=== PATIENT | female | born 1945 | race Caucasian/White ===

== ENCOUNTER → 2017-08-28 11:03 | Outpatient (CLI) | payer MEDICARE, OTHER, SELFPAY ==
--- NOTE | 2017-08-28 | DI.MG.S_ITS ---
BILATERAL DIGITAL SCREENING MAMMOGRAM 3D/2D WITH CAD: 08/28/2017 CLINICAL: Routine screening. Family history of breast cancer. Comparison is made to exams dated: 08/05/2016 mammogram, 07/23/2015 mammogram, and 07/21/2014 mammogram - Merged With [facility]. The tissue of both breasts is heterogeneously dense. This may lower the sensitivity of mammography. Current study was also evaluated with a Computer Aided Detection (CAD) system. No significant masses, calcifications, or other findings are seen in either breast. There has been no significant interval change. IMPRESSION: NEGATIVE There is no mammographic evidence of malignancy. A 1 year screening mammogram is recommended. NOTE: For mammograms, a report in lay terms will be sent to the patient. Approximately 15% of breast malignancies will not be visualized mammographically. In the management of a palpable breast mass, a negative mammogram must not discourage biopsy of a clinically suspicious lesion. Electronically Signed By: Lavinia torres/debora:08/28/2017 16:16:02 letter sent: Normal Exam ACR BI-RADS Category 1: Negative [id number]
== END ==
PROVIDERS: Family Provider Family Medicine; PCP Family Medicine; Visit Provider Family Medicine
DX: Z12.31 Encounter for screening mammogram for malignant neoplasm of breast (principal); Z80.3 Family history of malignant neoplasm of breast
CPT/HCPCS: 77063; 77067

== ENCOUNTER 2018-05-31 13:42 | Inpatient (IN) | payer MEDICARE, OTHER, SELFPAY ==
[2018-05-31] VITALS (9 sets, daily range): BP systolic 115–165; BP diastolic 63–109; PULSE 64–78; RESP 15–23; TEMP 36.5–36.7; O2SAT 97–100; BMI 25.4
--- NOTE | 2018-05-31 14:03 | DI.RAD.S_ITS ---
PROCEDURE: XR CHEST 1V INDICATIONS: chest pain TECHNIQUE: One view of the chest was acquired. COMPARISON: None. FINDINGS: Surgical changes and devices: None. Lungs and pleura: Lungs are clear. No pleural effusions or pneumothorax. Mediastinum: Mediastinal contours appear normal. Heart size is normal. Bones and chest wall: No suspicious bony lesions. Overlying soft tissues appear unremarkable. IMPRESSION: No acute process. Dictated by: Eri Recio M.D. on 05/31/2018 at 14:25 Approved by: Eri Recio M.D. on 05/31/2018 at 14:25
--- NOTE | 2018-05-31 14:43 | ED.NEUROSD ---
HPI - Neuro Symptoms/Deficit General Chief Complaint: Neuro Symptoms/Deficit Stated Complaint: rt arm numbness, stumbling, light headed Time Seen by Provider: 05/31/18 14:43 Source: patient and family () Mode of arrival: ambulatory Limitations: no limitations History of Present Illness HPI Narrative: This is a 72-year-old female comes to the emergency department with complaint of of her arm and hand as well as some weakness and stumbling around her house that started about 4:30 a.m. yesterday. Patient states she woke up to go to the restroom. She was sort of bouncing off the garcia on the way to the bathroom. She went back to bed and woke up at 7:00 a.m.. She noticed that her she has sort of a arm with tingling and numbness. States this happens frequently and sometimes her middle finger got stuck. Usually goes away but this did not. She had trouble with using her arm trying to do her hair and rollers which is not normal for her and she had an off sort of feeling. She did not have any speech changes, no vision changes, no weakness or numbness in her lower extremity, she denies any chest pain, shortness of breath, no headache. Some slight nausea but no vomiting and no issues with bowel movements or urination. States her blood pressure typically is been quite high she was started on new blood pressure medication about a week and a half ago at metoprolol 50 mg once daily. Her pressures have been running in the 200 systolic to 150s regularly with a heart rate that was often elevated. This has been improving and she has been 160s 150s here in the department. She does not take a blood thinner she takes lovastatin, cyclobenzaprine, omeprazole lorazepam. She does have a history of hysterectomy. Dr. Cantu is her primary care Related Data Home Medications Medication Instructions Recorded Confirmed cyclobenzaprine 10 mg PO BEDTIME 05/31/18 05/31/18 lorazepam 1 mg PO BEDTIME 05/31/18 05/31/18 lovastatin 20 mg PO QPM 05/31/18 05/31/18 metoprolol succinate 50 mg PO DAILY 05/31/18 05/31/18 metronidazole 1 applic TOPICAL BID 05/31/18 05/31/18 omeprazole 20 mg PO DAILY 05/31/18 05/31/18 Allergies Allergy/AdvReac Type Severity Reaction Status Date / Time No Known Drug Allergies Allergy Verified 05/31/18 13:56 Review of Systems Review of Systems ROS Unobtainable: All systems reviewed & are unremarkable except as noted in HPI and below Constitutional Denies chills, Denies fever(s), Denies headache(s), Denies lethargy and Denies weakness Eyes Denies blurry vision and Denies change in vision ENT Ears, Nose, Mouth, and Throat: Denies headache(s), Denies nasal congestion and Denies other (Facial droop) Cardiovascular Denies chest pain, Denies diaphoresis, Denies syncope, Denies palpitations, Denies dyspnea and Denies dyspnea on exertion Respiratory Denies chest congestion, Denies cough, Denies dyspnea and Denies dyspnea on exertion Gastrointestinal Gastrointestinal: Denies abdominal pain, Denies change in bowel habits, Denies diarrhea, Reports nausea and Denies vomiting Genitourinary Denies hematuria, Denies dysuria, Denies flank pain and Denies urinary urgency Musculoskeletal Reports as per HPI, Reports muscle weakness, Reports numbness and Reports tingling Integumentary/Breasts Denies rash Neurologic Denies syncope, Denies headache(s), Reports focal weakness (Improved right arm), Reports numbness, Reports sensory deficit, Reports tingling and Denies weakness Endocrine Denies palpitations [facility] Medical History (Updated 05/31/18 @ 19:41 by Josy Owusu DO) Dyslipidemia (Chronic) GERD (gastroesophageal reflux disease) (Chronic) H/O: hysterectomy (Chronic) Hypertension (Chronic) Social History (Updated 05/31/18 @ 19:41 by Josy Owusu DO) household members: spouse Smoking Status: Never smoker alcohol intake: current substance use type: does not use Social History (Updated 05/31/18 @ 19:41 by Josy Owusu DO) household members: spouse Smoking Status: Never smoker alcohol intake: current substance use type: does not use Exam Narrative Exam Narrative: GEN: well nourished, well appearing elderly female, alert and oriented x 3, patient appears to be in mild distress. HEENT: Atraumatic, pupils are equal round reactive to light, extraocular movements are intact, nares are clear, TMs are clear with no fluid, there is no conjunctival pallor. Throat is clear without any exudates, erythema, tonsillar enlargement or uvular deviation, no facial droop. Clear speech. HEART: Regular rate and rhythm without murmur, clicks, rubs. pulses are equal in upper and lower extremities LUNGS:Lungs clear to auscultation, no wheezes, rales, crackles, chest moves symmetrically ABD:bowel sounds normal, soft, non-tender, no guarding, rebound, rigidity, no masses noted, no hepatosplenomegaly MSCL: Non-tender, no muscle atrophy, muscles strength 5/5 upper and lower extremities, full range of motion, gait not tested. NEURO:CN 2-12 intact, sensation normal, finger nose finger test normal, heel elliott test normal Initial Vital Signs Initial Vital Signs: Vital Signs Temperature 98.1 F 05/31/18 13:52 Pulse Rate 73 05/31/18 13:52 Respiratory Rate 16 05/31/18 13:52 Blood Pressure 165/101 H 05/31/18 13:52 Pulse Oximetry 99 05/31/18 13:52 Scores NIH Stroke Scale Level of Conciousness: Alert, keenly responsive Ask month/age: Answers both questions correctly. Open/close eyes, close hand: Performs both tasks correctly Best gaze horizontal: Normal Visual robertson: No visual loss Facial palsy: Normal symetrical movement Left arm drift: No drift for full 10 sec Right arm drift: No drift for full 10 sec Left leg drift: No drift for full 10 sec Right leg drift: No drift for full 10 sec Limb ataxia: Absent Sensory on face/arms/legs: Mild to moderate sensory loss, can tell touch Best language: No aphasia, normal Dysarthria: Normal Extinction or inattention: No abnormality Total NIH Stroke scale score: 1 Course Orders Ordered: ED Orders 05/31/18 14:03 XR chest 1V Stat Complete Blood Count AUTO DIFF Stat Comprehensive Metabolic Panel Stat Lipase Stat Partial Thromboplastin Time Stat Prothrombin Time INR Stat Troponin & CK Cardiac Panel Stat 05/31/18 14:11 EKG-12 Lead Stat 05/31/18 15:20 CT head/brain wo con Stat 05/31/18 17:21 Consult to Discharge Planning Routine Consult to Occupational Therapy Evaluate & Treat Consult to Physical Therapy Evaluate & Treat Consult to Speech Therapy Evaluate & Treat Education, smoking cessation ONGOING Education, smoking cessation ONGOING 06/01/18 EC echo doppler complete Urgent MR stroke Urgent Basic Metabolic Panel Urgent Complete Blood Count AUTO DIFF Urgent 06/01/18 17:21 MR stroke Stat 06/01/18 17:24 Consult to Physical Therapy Evaluate & Treat Acetaminophen (Tylenol) 650 mg PO Q6HR PRN PRN Reason: As Needed for Fever/Mild Pain Aspirin (Aspirin) 325 mg PO DAILY [facility] Cyclobenzaprine HCl (Flexeril) 10 mg PO BEDTIME [facility] Enoxaparin Sodium (Lovenox) 40 mg SUBCUT DAILY [facility] Last Admin: 05/31/18 18:56 Dose: 40 mg Lorazepam (Ativan) 1 mg PO BEDTIME EDWIGE Lovastatin (Mevacor) 20 mg PO QPM [facility] Metoprolol Succinate (Toprol Xl) 50 mg PO DAILY [facility] Non-Formulary Medication (Sustain) 1 drop BUCCAL Q1HR [facility] Ondansetron HCl (Zofran) 4 mg IV Q8HR PRN PRN Reason: Nausea And Vomiting Pantoprazole Sodium (Protonix) 20 mg PO DAILY EDWIGE Discontinued Medications Aspirin (Aspirin Chew) 324 mg PO NOW ONE Stop: 05/31/18 16:02 Last Admin: 05/31/18 17:05 Dose: 324 mg Vital Signs - 8 hr 05/31/18 13:52 05/31/18 14:30 05/31/18 15:30 Temperature 98.1 F Pulse Rate 73 67 64 Respiratory Rate 16 15 17 Blood Pressure 165/101 H Blood Pressure [Left Arm] 161/81 H 165/71 H Pulse Oximetry 99 98 99 05/31/18 16:30 05/31/18 17:03 05/31/18 17:52 Temperature Pulse Rate 64 76 69 Respiratory Rate 17 18 23 Blood Pressure 164/85 H Blood Pressure [Left Arm] 161/82 H 127/109 H Pulse Oximetry 98 100 99 05/31/18 18:05 05/31/18 18:29 Temperature 97.8 F Pulse Rate 68 Respiratory Rate 18 Blood Pressure 149/95 H Blood Pressure [Left Arm] Pulse Oximetry 97 97 MDM - Neuro Symptoms/Deficit Lab Data Attestation: I reviewed the patient's lab results. Result diagrams: 05/31/18 14:03 05/31/18 14:03 Lab Results 05/31/18 05/31/18 05/31/18 Range/Units 14:03 14:03 14:03 WBC 5.7 (4.5-11.0) X10^3/uL RBC 4.53 (4.0-5.2) X10^6/uL Hgb 12.8 (12.0-16.0) g/dL Hct 38.9 (36-46) % MCV 86.0 (80-100) fL MCH 28.2 (26-34) PG MCHC 32.8 (30-36) % RDW 15.0 H (11.6-14.8) % Plt Count 183 (150-400) X10^3/uL Neut % (Auto) 51.8 (50-75) % Lymph % (Auto) 35.1 (25-40) % [place] % (Auto) 10.5 (3-14) % Eos % (Auto) 1.9 L (2-4) % Baso % (Auto) 0.7 (0-2) % Neut # (Auto) 2900 (2813-1159) /uL Lymph # (Auto) 2000 (0100-8314) /uL [place] # (Auto) 600 (0-900) /uL Eos # (Auto) 100 (0-450) /uL Baso # (Auto) 0 (0-100) /uL PT 10.7 (10.1-12.7) SECONDS INR 0.9 (0.9-1.3) APTT 23 L (26.4-36.2) SECONDS Sodium 136 L (137-145) mmol/L Potassium 5.1 (3.4-5.1) mmol/L Chloride 96 L (98-107) mmol/L Carbon Dioxide 31 (22-32) mmol/L BUN 18 H (7-17) mg/dL Creatinine 0.80 (0.52-1.04) mg/dL Estimated GFR > 60.0 (>60) mL/min BUN/Creatinine Ratio 22.5 H (6-22) Glucose 88 (80-110) mg/dL Calcium 10.0 (8.4-10.2) mg/dL Total Bilirubin 0.4 (0.2-1.3) mg/dL AST 26 (14-36) IU/L ALT 32 (9-52) IU/L Alkaline Phosphatase 51 (38-126) U/L Total Creatine Kinase 48 (30-135) U/L CK-MB (CK-2) TNP CK-MB (CK-2) Rel Index TNP Troponin I < 0.012 (0.01-0.034) ng/mL Total Protein 7.4 (6.3-8.2) g/dL Albumin 4.6 (3.5-5.0) g/dL Globulin 2.8 (1.7-4.1) g/dL Albumin/Globulin Ratio 1.6 (1.0-2.8) Lipase 136 (23-300) U/L Urine Dip Bedside Urine Glucose Negative Bedside Urine Bilirubin - Negative Bedside Urine Ketone - Negative Urine Specific [place] 1.015 Bedside Urine Occult Blood - Negative Bedside Urine pH 7.0 Bedside Urine Protein - Negative Bedside Urine Urobilinogen - Negative Bedside Urine Nitrite - Negative Bedside Urine Leukocytes - Negative Esterase Imaging Data Chest x-ray: Radiologist's impression: Chart Viewer Diagnostics DATE TYPE STATUS AUTHOR Hx 05/31/18 14:03 Eri Recio 08/28/17 00:00 Jayne Aguilarah 12/22/16 14:36 DEXA SCAN Maggie Naranjo, F0 1945 REG ER, ED.LOC - Main ED: R06 152.4cm 58.967kg BMI: 25.4kg/m? Neuro Symptoms/Deficit Search Chart No Data to Display Today 14:30 Maggie Naranjo F 1945 [place] [address] XRay Report Signed Patient: Maggie Naranjo [facility]#: [id number] : 8Acct:[id number] Age/Sex: 72 / FDate of Service: 05/31/18 Loc: ED Accession Number: [id number] Procedure: XR chest 1V Ordering Provider: Josy Owusu D.O. PROCEDURE: XR CHEST 1V INDICATIONS: chest pain TECHNIQUE: One view of the chest was acquired. COMPARISON: None. FINDINGS: Surgical changes and devices: None. Lungs and pleura: Lungs are clear. No pleural effusions or pneumothorax. Mediastinum: Mediastinal contours appear normal. Heart size is normal. Bones and chest wall: No suspicious bony lesions. Overlying soft tissues appear unremarkable. IMPRESSION: No acute process. Dictated by: Eri Recio M.D. on 05/31/2018 at 14:25 Approved by: Eri Recio M.D. on 05/31/2018 at 14:25 CT scan - head: Radiologist's impression: [address] [id number] [address] Scan Report Signed Patient: Maggie Naranjo [facility]#: [id number] : 8Acct:[id number] Age/Sex: 72 / FDate of Service: 05/31/18 Loc: ED Accession Number: [id number] Procedure: CT head/brain wo con Ordering Provider: Josy Owusu D.O. PROCEDURE: CT HEAD/BRAIN WO CON INDICATIONS: disequalibrium, tingling, weakness right arm TECHNIQUE: Noncontrast 4.5 mm thick angled axial sections acquired from the foramen magnum to the vertex, with coronal and sagittal reformats. For radiation dose reduction, the following was used: automated exposure control, adjustment of mA and/or kV according to patient size. COMPARISON: None. FINDINGS: Image quality: Excellent. CSF spaces: Basal cisterns are patent. No extra-axial fluid collections. The ventricles are symmetric in size and shape. Brain: No intracranial bleeds or masses. There is cerebral volume loss for age, with resultant ventricular and sulcal prominence. There are periventricular and deep white matter chronic small vessel ischemic changes. There is intracranial internal carotid artery atherosclerosis. Skull and face: Calvarium and visualized facial bones appear intact, without suspicious lesions. Sinuses: Visualized sinuses and mastoids are clear. IMPRESSION: No acute intracranial or mildly. Dictated by: Eri Recio M.D. on 05/31/2018 at 15:38 Approved by: Eri Recio M.D. on 05/31/2018 at 15:39 ECG Data Attestation: I personally reviewed and interpreted this ECG as follows: Interpretation: Sinus rhythm ventricular rate of 67 P are 176 QRS of 93 and QTC of 388. No ST elevation or depression appreciated. MDM Narrative Medical decision making narrative: Discussed with patient she does have a history of carpal tunnel in that hand but sounds like she is having true weakness and the numbness tingling is not resolved as well as her disequilibrium and sort of bouncing off of furniture in the garcia makes me more suspicious of a CVA. She is almost 24 out hours out from initial onset. She would not be a candidate for tPA or intervention at this time. Patient's head CT is negative, chest x-ray is clear, no acute EKG changes lab work shows no major abnormalities. Spoke with Dr. Monreal who accepts. Patient does receive aspirin 324 mg in the department. Discharge Plan Departure Patient Disposition: Admitted as Observation Clinical Impression: Cerebrovascular accident Discharge Date/Time: 05/31/18 18:10 Interventions: ED Discharge Assessment Last Done: 05/31/18 17:52 Admit Date/Time: 05/31/18 16:58 Admit Provider: Fritz Monreal
[2018-05-31 15:02] LABS: Add Manual Diff / Slide Review NO; Basophils Absolute Auto 0 /uL (0-100); Basophils Percent Auto 0.7 % (0-2); Eosinophils Absolute Auto 100 /uL (0-450); Eosinophils Percent Auto 1.9 % (2-4); Hematocrit 38.9 % (36-46); Hemoglobin 12.8 g/dL (12.0-16.0); Lymphocytes Absolute Auto 2000 /uL (1100-4500); Lymphocytes Percent Auto 35.1 % (25-40); Mean Corpuscular HGB Conc 32.8 % (30-36); Mean Corpuscular Hemoglobin 28.2 PG (26-34); Monocytes Absolute Auto 600 /uL (0-900); Monocytes Percent Auto 10.5 % (3-14); Neutrophils Absolute Auto 2900 /uL (1500-7000); Neutrophils Percent Auto 51.8 % (50-75); Platelet Count 183 X10^3/uL (150-400); Red Blood Cell Count 4.53 X10^6/uL (4.0-5.2); White Blood Cell Count 5.7 X10^3/uL (4.5-11.0)
[2018-05-31 15:07] LABS: INR 0.9 (0.9-1.3); Prothrombin Time 10.7 SECONDS (10.1-12.7)
[2018-05-31 15:10] LABS: PTT Partial Thromboplastin Tim 23 SECONDS (26.4-36.2)
[2018-05-31 15:16] LABS: Alanine Aminotransferase 32 IU/L (9-52); Albumin 4.6 g/dL (3.5-5.0); Albumin Globulin Ratio 1.6 (1.0-2.8); Alkaline Phosphatase 51 U/L (38-126); Aspartate Aminotransferase 26 IU/L (14-36); BUN Creatinine Ratio 22.5 (6-22); Bilirubin Total 0.4 mg/dL (0.2-1.3); Blood Urea Nitrogen 18 mg/dL (7-17); Carbon Dioxide 31 mmol/L (22-32); Chloride 96 mmol/L (98-107); Creatine Kinase 48 U/L (30-135); Estimated Glomerular Filt Rate > 60.0 mL/min (>60); Globulin 2.8 g/dL (1.7-4.1); Glucose 88 mg/dL (80-110); HEMOLYSIS < 15 (0-50); Lipase 136 U/L (23-300); Potassium 5.1 mmol/L (3.4-5.1); Sodium 136 mmol/L (137-145); Total Protein 7.4 g/dL (6.3-8.2)
--- NOTE | 2018-05-31 15:20 | DI.CT.S_ITS ---
PROCEDURE: CT HEAD/BRAIN WO CON INDICATIONS: disequalibrium, tingling, weakness right arm TECHNIQUE: Noncontrast 4.5 mm thick angled axial sections acquired from the foramen magnum to the vertex, with coronal and sagittal reformats. For radiation dose reduction, the following was used: automated exposure control, adjustment of mA and/or kV according to patient size. COMPARISON: None. FINDINGS: Image quality: Excellent. CSF spaces: Basal cisterns are patent. No extra-axial fluid collections. The ventricles are symmetric in size and shape. Brain: No intracranial bleeds or masses. There is cerebral volume loss for age, with resultant ventricular and sulcal prominence. There are periventricular and deep white matter chronic small vessel ischemic changes. There is intracranial internal carotid artery atherosclerosis. Skull and face: Calvarium and visualized facial bones appear intact, without suspicious lesions. Sinuses: Visualized sinuses and mastoids are clear. IMPRESSION: No acute intracranial or mildly. Dictated by: Eri Recio M.D. on 05/31/2018 at 15:38 Approved by: Eri Recio M.D. on 05/31/2018 at 15:39
[2018-05-31 15:26] LABS: Troponin I < 0.012 ng/mL (0.01-0.034)
[2018-05-31] MEDS: ASPIRIN 81 MG TAB 324 MG PO (17:05)
--- NOTE | 2018-05-31 17:41 | P.HP_ITS ---
History of Present Illness Date Patient Seen: 05/31/18 Time Patient Seen: 17:30 Chief complaint: rt arm numbness, stumbling, light headed Narrative: The patient is a 72-year-old white female patient of Dr. Cantu so I am cross covering for who presents with right hand numbness and weakness and balance difficulty. Patient has had no previous history of neurologic issues. Apparently yesterday for in the morning she got up to go to the bathroom and just felt off such could really describe it. She noted that she ran into several things she usually does not run into going to the bathroom. She finally made it back to the bedroom and bed and went to sleep woke up feeling somewhat tingly in her right hand but really no other changes. Her balance seemed to improve. Otherwise the numbness and tingling seemed to be present pretty consistently throughout the day and then she started to feel little more weak. Was unable to help her move furniture. She went to bed last night somewhat early and noted when she woke up that she was numb but her balance seems a little better. Still felt off. Hand seems to be a little better. Due to the fact that it was persistent she came to the emergency room. She denies any headaches. Nausea or vomiting. Visual changes. Has not walked since she has been to the hospital. No other changes. No change in her bowel movements. No urinary changes. Feeling pretty well otherwise. Patient has a history of poorly treated hypertension was recently placed on metoprolol. She has a history of SVT but is not on treatment for that. Does have history of hyperlipidemia. No other changes. Past medical history: Dry eyes Hypertension Hyperlipidemia Esophageal reflex Chronic back pain Benzodiazepine addiction Anxiety Insomnia Osteoporosis Past surgical history: Appendectomy Hysterectomy Family history father with liver cancer, alcohol addiction, stroke at 50 years of age, diabetes, hyperlipidemia Mother breast cancer hyperlipidemia hypertension Sister with diabetes Alzheimer's disease and history of strokes 1 year older, younger brother with coronary artery disease 5 years her younger, 10-year younger sister healthy Social history , retired good support. Patient History Social History Smoking Status: Never smoker Family & Social History Safety & Behavioral: Feels Safe in Current Yes Environment Been Physically Hurt or No Threatened By a Person Tobacco & Substance use: Smoking Status Never smoker alcohol intake frequency holiday/special occasion Substance Use Type does not use Meds Home Medications Medication Instructions Recorded Confirmed Type cyclobenzaprine 10 mg PO BEDTIME 05/31/18 05/31/18 History lorazepam 1 mg PO BEDTIME 05/31/18 05/31/18 History lovastatin 20 mg PO QPM 05/31/18 05/31/18 History metoprolol succinate 50 mg PO DAILY 05/31/18 05/31/18 History metronidazole 1 applic TOPICAL BID 05/31/18 05/31/18 History omeprazole 20 mg PO DAILY 05/31/18 05/31/18 History Allergies Allergy/AdvReac Type Severity Reaction Status Date / Time No Known Drug Allergies Allergy Verified 05/31/18 13:56 Review of Systems Review of Systems All systems reviewed & are unremarkable except as noted in HPI and below Exam Vital Signs (past 8 hours): - 05/31/18 13:52 05/31/18 14:30 05/31/18 15:30 Temperature 98.1 F Pulse Rate 73 67 64 Respiratory Rate 16 15 17 Blood Pressure 165/101 H Blood Pressure [Left Arm] 161/81 H 165/71 H Pulse Oximetry 99 98 99 05/31/18 16:30 05/31/18 17:03 Temperature Pulse Rate 64 76 Respiratory Rate 17 18 Blood Pressure Blood Pressure [Left Arm] 161/82 H 127/109 H Pulse Oximetry 98 100 Oxygen Delivery Method Room Air Narrative Exam Narrative: Alert elderly female smiling interactive in no acute distress. HEENT exam shows pupils request much light. Normal movement. No nystagmus. Mucous membranes moist. No oral lesions. no tenderness to exam of head. Neck supple without adenopathy JVD or bruits. No thyromegaly. No masses. Lungs are clear to auscultation percussion heart regular rate and rhythm without murmurs clicks rubs or gallops. Abdomen is soft positive bowel sounds nontender. Extremities without cyanosis clubbing edema. Normal pulses distal. Neurologic exam shows cranial nerves 2-12 were intact motor is 5/5 she is alert and oriented. Motor and sensation appear to be intact. Reflexes are 2+ and s ymmetric. Did not walk but [id number] and [id number] are normal. Psychologically happy interactive appropriate Objective Labs Result Diagrams: 05/31/18 14:03 05/31/18 14:03 Labs: Laboratory Results - last 24 hr 05/31/18 05/31/18 05/31/18 14:03 14:03 14:03 WBC 5.7 RBC 4.53 Hgb 12.8 Hct 38.9 MCV 86.0 MCH 28.2 MCHC 32.8 RDW 15.0 H Plt Count 183 Neut % (Auto) 51.8 Lymph % (Auto) 35.1 [place] % (Auto) 10.5 Eos % (Auto) 1.9 L Baso % (Auto) 0.7 Neut # (Auto) 2900 Lymph # (Auto) 2000 [place] # (Auto) 600 Eos # (Auto) 100 Baso # (Auto) 0 PT 10.7 INR 0.9 APTT 23 L Sodium 136 L Potassium 5.1 Chloride 96 L Carbon Dioxide 31 BUN 18 H Creatinine 0.80 Estimated GFR > 60.0 BUN/Creatinine Ratio 22.5 H Glucose 88 Calcium 10.0 Total Bilirubin 0.4 AST 26 ALT 32 Alkaline Phosphatase 51 Total Creatine Kinase 48 CK-MB (CK-2) TNP CK-MB (CK-2) Rel Index TNP Troponin I < 0.012 Total Protein 7.4 Albumin 4.6 Globulin 2.8 Albumin/Globulin Ratio 1.6 Lipase 136 Assessment & Plan Assessment & Plan narrative: Right arm numbness. Otherwise unremarkable exam. Will admit for concern for stroke MRI echo physical therapy and neuro checks. Will continue aspirin 1 a day expected discharge 48 hours. If stable. Balance difficulty. Possibly secondary to stroke. Certainly unremarkable neuro exam today. Plan will start physical therapy tomorrow and have them evaluate will see how she does. MRI and echo as above. Aspirin to continue. Hypertension. Moderately poorly controlled as an outpatient actually looks pr henrry good right now will continue metoprolol and follow. History of hyperlipidemia will continue lovastatin next specially in the case of stroke. Seems to be stable. Insomnia will continue lorazepam cyclobenzaprine Dry eyes will continue Sustain saline drops GERD will continue omeprazole DVT prophylaxis placed on Lovenox Disposition. Patient certainly would be probably more in the category of TIA than stroke will have to see how things go with CT or MRI shows will see her echo shows should be at least 48 hours needs physical therapy evaluation. Probably home potentially Thursday morning will see how things go questions answered both her and her 's
[2018-05-31] MEDS: ENOXAPARIN 40 MG/0.4 ML SYRINGE SUBCUT (18:56)
[2018-05-31] MEDS: POLYVINYL ALCOHOL DROPS 1 DROPS EYE-BOTH (21:08)
[2018-05-31] MEDS: CYCLOBENZAPRINE 10 MG TABLET PO (21:08)
[2018-05-31] MEDS: LOVASTATIN 20 MG TABLET PO (21:08)
[2018-05-31] MEDS: LORazepam 1 MG TABLET PO (21:08)
--- NOTE | 2018-05-31 22:56 | PC.NURSE ---
pt arrived at 1830. A&OX3, 97%RA, denied pain, sob, or n/v. pt reports R.hand tingling, no facial droop, speech is clear and coherent, no drift. oriented pt to the room. call light in reach.
[2018-06-01] VITALS (9 sets, daily range): BP systolic 113–152; BP diastolic 72–83; PULSE 66–81; RESP 15–16; TEMP 36.1–36.6; O2SAT 95–97
--- NOTE | 2018-06-01 | DI.ECHO.S_ITS ---
[place] [facility]---------+ [facility] +---------+ : : [address] : : : : [id number] : : : : Phone: [phone]+ Echocardiogram Report + + :Name: CRISTINA MANNING Study Date: 06/01/2018 Height: 60 in : :[facility] Weight: 131 lb : : Gender: Female BSA: 1.6 m2 : :: 1945 Age: 72 yrs BP: 113/75 mmHg: :Reason For Study: CVA : : Performed By: Marie Calvillo : :Referring: ZIGGY BHATTI : + + Interpretation Summary The left ventricle is normal in size. The ejection fraction is estimated to be 60-65%. No LV thrombus. The right ventricle is normal size. The right ventricular systolic function is normal. Injection of contrast documented no interatrial shunt. There is mild tricuspid regurgitation. The right ventricular systolic pressure is estimated to be at least 24 mmHg based on an estimated right atrial pressure of 3 mm Hg. No significant atherosclerotic plaques in the aortic arch. The patient was in normal sinus rhythm during the exam. Procedure: A two-dimensional transthoracic echocardiogram with color flow and Doppler was performed. The study quality was technically good. There is no prior echocardiogram noted for this patient. The patient was in normal sinus rhythm during the exam. Left Ventricle: The left ventricle is normal in size. Proximal septal thickening is noted. There is no echo evidence for significant left ventricular outflow tract obstruction. There is no thrombus. The ejection fraction is estimated to be 60-65%. There are no focal wall motion abnormalities. Diastolic parameters suggest a relaxation abnormality of the left ventricle, consistent with probable normal filling pressures. Right Ventricle: The right ventricle is normal size. The right ventricular systolic function is normal. Atria: The left atrial size is normal. Right atrial size is normal. Injection of contrast documented no interatrial shunt. Mitral Valve: There is mild mitral annular calcification. The mitral valve leaflets are slightly calcified. There is no mitral regurgitation noted. Aortic Valve: The aortic valve is trileaflet. The aortic valve opens well. The aortic valve is slightly calcified. There is discrete nodular thickening of the non- coronary cusp. There is no aortic valve stenosis. No aortic regurgitation is present. Tricuspid Valve: The tricuspid valve is normal in structure and function. There is mild tricuspid regurgitation. The right ventricular systolic pressure is estimated to be at least 24 mmHg based on an estimated right atrial pressure of 3 mm Hg. Pulmonic Valve: The pulmonic valve is not well seen, but is grossly normal. There is trace pulmonic regurgitation. Great Vessels: The aortic root is normal size. The dimensions of the ascending aorta are normal. The aortic arch is normal in size. The IVC is of normal diameter and collapses greater than 50% with a sniff. This suggests a low right atrial pressure of 3 mm Hg. Pericardium/ Pleura There is no pericardial effusion. There is no pleural effusion. MMode/2D Measurements & Calculations LVIDd: 4.2 cm Ao root diam: 2.8 cm LVIDs: 2.6 cm Aortic Jxn: 2.2 cm FS: 38.6 % asc Aorta Diam: 3.1 cm IVSd: 0.86 cm Ao Arch Diam (Prox Trans): 2.5 cm LVPWd: 0.90 cm LV winter. diameter/BSA (cm/m^2): 2.7 LV sys. diameter/BSA (cm/m^2): 1.7 LA dimension: 3.6 cm RA long axis: 4.2 cm LA A2 area: 17.4 cm2 RA area: 12.3 cm2 LA A4 area: 12.0 cm2 RA vol: 30.3 ml LA length (vol): 4.2 cm RA : 19.4 ml/m2 LA vol: 42.5 ml IVC diam: 1.4 cm LA vol index: 27.2 ml/m2 RVDd major: 4.7 cm RVD1 (basal): 3.1 cm RVD2 (mid): 2.6 cm Doppler Measurements & Calculations Ao V2 max: 112.7 cm/sec MV E max juan j: 52.0 cm/sec Ao V2 mean: 70.9 cm/sec MV A max juan j: 82.8 cm/sec Ao max P.1 mmHg MV E/A: 0.63 Ao mean P.4 mmHg Med Peak E' Juan J: 5.3 cm/sec Ao V2 VTI: 23.2 cm E/E' med: 9.9 Lat Peak E' Juan J: 5.5 cm/sec E/E' lat: 9.5 E/e' average: 9.7 MV dec time: 0.27 sec MV P1/2t: 81.8 msec TR max juan j: 227.0 cm/sec MV P1/2t max juan j: 52.6 cm/sec TR max P.6 mmHg MVA(P1/2t): 2.7 cm2 PA V2 max: 75.1 cm/sec PA V2 mean: 48.2 cm/sec PA mean P.1 mmHg PA Accel Time: 0.16 sec Reading Physician:JACKY
[2018-06-01 06:06] LABS: BUN Creatinine Ratio 23.8 (6-22); Blood Urea Nitrogen 19 mg/dL (7-17); Calcium 9.4 mg/dL (8.4-10.2); Carbon Dioxide 25 mmol/L (22-32); Chloride 100 mmol/L (98-107); Estimated Glomerular Filt Rate > 60.0 mL/min (>60); Glucose 104 mg/dL (80-110); HEMOLYSIS 24 (0-50); Potassium 3.7 mmol/L (3.4-5.1); Sodium 136 mmol/L (137-145)
[2018-06-01 06:08] LABS: Add Manual Diff / Slide Review NO; Basophils Absolute Auto 0 /uL (0-100); Basophils Percent Auto 0.4 % (0-2); Eosinophils Absolute Auto 100 /uL (0-450); Eosinophils Percent Auto 2.7 % (2-4); Hematocrit 37.1 % (36-46); Hemoglobin 12.6 g/dL (12.0-16.0); Lymphocytes Absolute Auto 2000 /uL (1100-4500); Lymphocytes Percent Auto 44.6 % (25-40); Mean Corpuscular Hemoglobin 28.9 PG (26-34); Mean Corpuscular Volume 84.9 fL (80-100); Monocytes Absolute Auto 400 /uL (0-900); Monocytes Percent Auto 8.4 % (3-14); Neutrophils Absolute Auto 2000 /uL (1500-7000); Neutrophils Percent Auto 43.9 % (50-75); Platelet Count 273 X10^3/uL (150-400); Red Blood Cell Count 4.37 X10^6/uL (4.0-5.2); Red Cell Distribution Width 14.8 % (11.6-14.8); White Blood Cell Count 4.6 X10^3/uL (4.5-11.0)
--- NOTE | 2018-06-01 07:39 | PM.PN.1 ---
Subjective Date Patient Seen: 06/01/18 Time Patient Seen: 07:39 Interval history: Patient seen in follow-up of right arm weakness and balance disturbance. Overall just waking up but feeling okay still having some feeling of weakness in numbness in her right hand. Otherwise no changes. Has not been up today. Got up to go to the bathroom 3 times last night and felt like she did okay. No other significant changes. No chest pain. No headaches. No visual symptoms. Exam Vital Signs (past 8 hours): - 05/31/18 23:40 06/01/18 00:11 06/01/18 03:00 Temperature 97.7 F 97.5 F L Pulse Rate 78 72 Respiratory Rate 16 16 Blood Pressure 115/63 136/72 Pulse Oximetry 97 96 96 Oxygen Delivery Method Room Air Narrative Exam Narrative: Alert female smiling interactive in no acute distress. HEENT exam is unremarkable mucous membranes moist. Neck is supple without adenopathy JVD or bruits. Lungs are clear. Heart regular rate and rhythm without murmurs clicks rubs or gallops. Abdomen is soft positive bowel sounds nontender. extremities without cyanosis clubbing edema. neurologic exam shows cranial nerves 2-12 intact motor 5 in 5 reflexes 2+ and symmetric she does have maybe some slight weakness of the right hand sensation appears to be intact except for a subjective decrease in sensation of light touch. Rest of extremities are normal. Psychologically awake alert smiling interactive appropriate Objective Labs Result Diagrams: 06/01/18 05:11 06/01/18 05:11 Labs: Laboratory Results - last 24 hr 05/31/18 05/31/18 05/31/18 14:03 14:03 14:03 WBC 5.7 RBC 4.53 Hgb 12.8 Hct 38.9 MCV 86.0 MCH 28.2 MCHC 32.8 RDW 15.0 H Plt Count 183 Neut % (Auto) 51.8 Lymph % (Auto) 35.1 [place] % (Auto) 10.5 Eos % (Auto) 1.9 L Baso % (Auto) 0.7 Neut # (Auto) 2900 Lymph # (Auto) 2000 [place] # (Auto) 600 Eos # (Auto) 100 Baso # (Auto) 0 PT 10.7 INR 0.9 APTT 23 L Sodium 136 L Potassium 5.1 Chloride 96 L Carbon Dioxide 31 BUN 18 H Creatinine 0.80 Estimated GFR > 60.0 BUN/Creatinine Ratio 22.5 H Glucose 88 Calcium 10.0 Total Bilirubin 0.4 AST 26 ALT 32 Alkaline Phosphatase 51 Total Creatine Kinase 48 CK-MB (CK-2) TNP CK-MB (CK-2) Rel Index TNP Troponin I < 0.012 Total Protein 7.4 Albumin 4.6 Globulin 2.8 Albumin/Globulin Ratio 1.6 Lipase 136 06/01/18 06/01/18 05:11 05:11 WBC 4.6 RBC 4.37 Hgb 12.6 Hct 37.1 MCV 84.9 MCH 28.9 MCHC 34.0 RDW 14.8 Plt Count 273 Neut % (Auto) 43.9 L Lymph % (Auto) 44.6 H [place] % (Auto) 8.4 Eos % (Auto) 2.7 Baso % (Auto) 0.4 Neut # (Auto) 2000 Lymph # (Auto) 2000 [place] # (Auto) 400 Eos # (Auto) 100 Baso # (Auto) 0 PT INR APTT Sodium 136 L Potassium 3.7 D Chloride 100 Carbon Dioxide 25 BUN 19 H Creatinine 0.80 Estimated GFR > 60.0 BUN/Creatinine Ratio 23.8 H Glucose 104 Calcium 9.4 Total Bilirubin AST ALT Alkaline Phosphatase Total Creatine Kinase CK-MB (CK-2) CK-MB (CK-2) Rel Index Troponin I Total Protein Albumin Globulin Albumin/Globulin Ratio Lipase Assessment & Plan Assessment & Plan narrative: Right arm numbnes./weakness. Maybe she is slightly weak in her right hand today it is very difficult to tell but slightly decreased from her left and she is right-hand dominant. Possible stroke. On aspirin. Otherwise blood pressure is better managed will see how things go today with echo and MRI MRA. Physical therapy and follow-up a.m.. If everything stable probably home tomorrow. Balance difficulty. Physical therapy today. Workup as above. No change otherwise. Hypertension. Actually BP control seems a little bit better will have to see how the day goes. May need to go up on her metoprolol. But blood pressure the last few times have been actually pretty good will see how things go. History of hyperlipidemia. We will follow. Continue lovastatin Insomnia. Doing well. Able to sleep last night Frequent urination Appears to be secondary to her water intake. Will follow. History of GERD will continue omeprazole DVT prophylaxis on Lovenox. Note Disposition prior Procrit studies today hopefully discharge tomorrow depending on results and PT evaluation
[2018-06-01] MEDS: PANTOPRAZOLE 20 MG TABLET PO (08:06)
[2018-06-01] MEDS: METOPROLOL ER 50 MG TABLET PO (08:06)
[2018-06-01] MEDS: SODIUM CHLORIDE 0.9% FLUSH 10 ML IV ×2 (08:07→21:37)
[2018-06-01] MEDS: ASPIRIN 325 MG TABLET PO (08:08)
[2018-06-01] MEDS: ENOXAPARIN 40 MG/0.4 ML SYRINGE SUBCUT (08:13)
--- NOTE | 2018-06-01 09:34 | PC.NURSE ---
Addendum entered by Vinita Cordova R.N. 06/01/18 12:24: Pt reports that she fell asleep during her MRI and that she feels fine but states that her right hand again feels heavy and tingly. She states that she thinks this is because she had to hold her arms so still for the duration of the MRI. Original Note: Addendum entered by Vinita Cordova R.N. 06/01/18 11:50: Pt back to room from MRI. Original Note: Addendum entered by Vinita Cordova R.N. 06/01/18 11:15: Pt in Radiology having MRI. Transferred via w/c. Original Note: Pt working with speech therapy and reports that during conversation she felt a wave of dizziness/feeling off washed over her from the waist up and tingling began again in her right hand. Symptoms stopped after a few minutes and Pt states she feels normal once again and no tingling to limbs. Pt is cleared from S.T. service.
--- NOTE | 2018-06-01 11:40 | PT.IPTN ---
Physical Therapy Treatment Note M3 PT-IP Subjective Start: 06/01/18 13:02 Freq: NEEDED Status: Active Protocol: Document 06/01/18 11:40 DLM (Rec: 06/01/18 13:03 DLM [id number]) Subjective Physical Therapy Visit Type Type Patient Unavailable Notes pt out to MRI, will plan to see in PM
--- NOTE | 2018-06-01 11:50 | ST.IPIE ---
Care Team Visit Care Team Role Provider Type Jim Cantu MD Primary Care Provider Physician Specialty: Family Practice Address: [address] [place] [address], [id number] Email: Josy Owusu DO Emergency Provider Physician Specialty: Emergency Medicine Address: [address] [place] [address], [id number] Email: Fritz Monreal MD Admit Provider Physician Attending Provider Specialty: [facility] Address: [address] [place] [address] [place], [address] Email: [email or web address] Past Medical History (Last Updated 05/31/18 @ 19:41 by Josy Owusu DO) Dyslipidemia (Chronic Medical) GERD (gastroesophageal reflux disease) (Chronic Medical) H/O: hysterectomy (Chronic Medical) Hypertension (Chronic Medical) ST IP Initial Evaulation Report [facility]INE [facility] Clinical Swallow Evaluation Start: 06/01/18 10:08 Freq: Status: Active Protocol: Document 06/01/18 10:08 ROSALINDA (Rec: 06/01/18 10:40 ROSALINDA [email or web address]) Clinical Swallow Evaluation Session Time Visit Start Time 08:55 Visit Stop Time 09:15 Total Visit Minutes 20 Visit Information Visit Number Initial Evaluation Referral Referring Physician Dr. Fritz Monreal Reason for Referral Stroke Protocol Setting Assessment Location Acute Care Visit Type Note Type Initial Evaluation Patient Information Identification Type Name ID Card History 72-year-old female who presented to ED with right hand numbness and weakness and balance difficulty. Patient has had no previous history of neurologic issues. NIH Stroke Scale score of 1 in ED for mild-mod physical sensory loss . Admitted under obs with heart healthy/cardiac diet. Subjective Observations The pt was up and brushing her teeth at the sink upon MINE SURVEYOR's arrival. She reported feeling nearly back to normal but with continued mild tingly sensation in right hand. She had just finished a full breakfast without complaints of swallow difficulty but was agreeable to trials for swallow evaluation. After swallow evaluation, she did note that she felt suddenly a hodgson of warmth sweep over her and slight dizziness or confusion. She was concerned that her speech was unclear or confused, but no deficits or changes were perceivable by this clinician. She denied need for the Nurse and proceeded with speech-language evaluation, which she passed. Nsg was notified at the end of the session. Evaluation Liquids Trialed Thin Solids Trialed Mechanical Soft Regular Administration Type Cup Single Sip Cup Consecutive Sips Self-Feeding Oral Impairment WNL Oral Strategies Upright at 90 degrees Oral Phase Comments Oral Peripheral Exam: Symmetrical features WNL of strength, ROM and coordination with exception of mildly reduced lingual strength upon lateral protrusion to right vs left. Pt has dental implants and natural teeth in good condition. No complaints of difficulty with mastication. Soft palate elevates upon phonation. Mildly reduced hyolaryngeal elevation and moderately reduced anterior excursion via palpation. Oral Phase: WNL. Appropriate oral acceptance, containment, bolus formation and transit, swallow trigger and oral clearance. Pharyngeal Impairment WNL Pharyngeal Strategies Sitting Upright (90 deg) Pharyngeal Phase Comments WNL. No overt s/sx of aspiration with trials of thin liquid in single and consecutive sips, mechanical soft and regular textures with exception of mild cough exhibited x1 after swallow of thin liquid following dry cracker. Pt was re-assessed with same texture and safely tolerated. Vocal quality remained constant throughout evaluation. Findings Dysphagia Type Swallow function is WNL. Diet Recommendations Liquids Order Thin Diet Order Regular Medication Recommendations As Tolerated Aspiration Precautions Recommended Precautions Upright at 90 Degrees Treatment Plan Placement Recommendations after Home Discharge Therapy Recommendations No dysphagia therapy warranted at this time. MINE SUR[facility]YOR Language Evaluation Start: 06/01/18 10:08 Freq: Status: Active Protocol: Document 06/01/18 11:35 ROSALINDA (Rec: 06/01/18 11:49 ROSALINDA [email or web address]) Language Evaluation Session Time Visit Start Time 09:15 Visit Stop Time 09:35 Total Visit Minutes 20 Visit Information Visit Number Initial Evaluation Referral Referring Physician Dr. Fritz Monreal Reason for Referral Stroke Protocol Language Evaluation Assessment Type Speech-Language Hearing Hearing Level Normal Vision Vision Status Not Impaired Comments Has reading glasses but did not use during this evaluation [place] Language Language(s) Spoken in the Home German Previous Therapy Previous Speech-Language Therapy No - Informal Assessment Receptive Language Normal Yes Expressive Language Normal Yes Articulation Normal Yes Assessment Findings The pt presents with expressive and receptive language skills WNL. Speech is clear and 100% intelligible. - Receptive Language Yes/No Questions Skill Level WNL Following Directions - Verbal Skill Level WFL Comments Mild confusion w/ 3-step command Following Directions - Written Skill Level WFL Auditory Comprehension Skill Level WNL Comments Assessed in conversation and simple to moderately complex tasks Reading Comprehension Skill Level WNL Comments Words, phrases and sentences Receptive Language Comments Receptive Language Comments WNL in basic conversation and assessment tasks with exception of 1 in 5 3-step directions. She answered questions, maintained topics, and responded with appropriate comments and questions. - Expressive Language Automatic Speech Skill Level WNL Sentence Closure Skill Level WNL Object Naming Skill Level WNL Stating Functions Skill Level WNL Oral Expression Skill Level WNL Written Expression Skill Level WNL Expressive Language Comments Expressive Language Comments WNL. The pt participated appropriately in conversation, able to state recent medical events, was oriented x4, and exhibited appropriate syntax and word usage. No evidence of word-finding difficulties was observed. The pt was able to write legibly in cursive with typical effort with her right/ affected hand and reported no difficulty and that her writing looked normal. - Findings Language Findings The pt presents with speech and expressive/receptive language skills WNL. Recommendations Recommendations No speech or language therapy is warranted at this time. The pt did not exhibit memory or orientation or other cognitive deficits. She was educated on findings and potential s/sx of stroke impacting this areas , as well as general aspiration risks and precautions. She verbalized understanding and will be discharged at this time from skilled Speech Pathology services.
--- NOTE | 2018-06-01 13:39 | CM.DANOTE ---
Patient is a 72 year old female who was admitted on 05/31/18 for Possible TIA. Pt has [employer] and [employer] for insurance and her PCP is Dr. Jim Cantu. EMR was reviewed. Per MD, pt scheduled for an MRI and Echo today and pending results could possibly d/c home. PT/OT/ST have been ordered. Per ST, pt did well and cleared by ST. SW met bedside with pt and explained role and pt confirms that she lives at home in [place] with her and both are retired and Independent with ADL's at baseline. Pt still drives and states that her DPOA is her spouse. Pt unsure if she will have any needs at d/c pending MRI and Echo results. Plan: SW to follow closely for Echo and MRI results to determine possible needs at d/c. SW to follow for PT/OT eval and recommendations. Pt's OBS Status could change to Inpt Status pending test results. NELLIE Felix Discharge Planning/Care Management CM Discharge Assessment Start: 06/01/18 13:37 Freq: Status: Active Protocol: Document 06/01/18 13:37 BF (Rec: 06/01/18 13:39 BF [id number]) Discharge Planning Assessment Assigned Medical Support Assistant NELLIE Thomson DPOA/Assigned Designee Name spouse Advance Directives? Yes: POLST Advance Directives on File Yes History Provided By Patient Medical Record Has Patient been admitted in last 30 No days? Prior Living Arrangements House Household Members spouse Type of transporation used prior to Drives own vehicle admit Independent with ADL's Yes Is patient alert and oriented? Yes Caregiver for Another No Comment Waiting for Echo and MRI results towards d/c planning needs Discharge Plan Home Transportation Arrangement Spouse can likely provide transport when pt stable for d /c. Whiteboard Updated in Patient Room with Yes name and ext. # of Medical Support Assistant Review Status In Process Please Provide Date Initial DC 06/01/18 Assessment Was Performed Next Review Type Continued Stay Review
--- NOTE | 2018-06-01 14:50 | PT.IIE ---
Medical History (Last Updated 05/31/18 @ 19:41 by Josy Owusu DO) Dyslipidemia (Chronic) GERD (gastroesophageal reflux disease) (Chronic) H/O: hysterectomy (Chronic) Hypertension (Chronic) Physical Therapy Inpatient Evaluation/Re-Eval M1 PT/OT-IP Prior Functional Status Start: 06/01/18 14:28 Freq: NEEDED Status: Active Protocol: Document 06/01/18 15:00 [facility] (Rec: 06/01/18 15:40 [facility] [id number]) Medical Review Prior Functional Status Medical History Reviewed Yes Diet/Fluid Consistency Regular Thin Liquids Communication Independent Mobility and Gait Independent with no devices. Activities of Daily Living and IADL's Independent with ADl, IADL, medications, money management needs. Prior Functional Level (Other details) Pt states since Thursday has noted not been able to carry 5 gallon jug anymore and trouble lifting with right arm . Also noted since Thursday more numbness with right hand. Social History Household Members spouse Living Arrangements House Number of Floors (Floors) One Floor Number of Stairs To Enter/Railing? No steps to enter or within the house. Pt has a walk in shower with no steps. Home Environment Walk in Shower Home Equipment Shower Seat without Backrest Employment Status Retired M2 PT-IP Current Condition Start: 06/01/18 13:02 Freq: NEEDED Status: Active Protocol: Document 06/01/18 14:50 DLM (Rec: 06/01/18 16:46 DLM [id number]) Physical Therapy Current Condition Current Condition Evaluation Date 06/01/18 Treatment Diagnosis left thalamic CVA with right hemiplegia Onset Date M3 PT-IP Subjective Start: 06/01/18 13:02 Freq: NEEDED Status: Active Protocol: Document 06/01/18 14:50 DLM (Rec: 06/01/18 16:46 DLM [id number]) Subjective Physical Therapy Visit Type Type Initial Evaluation Visit Start Time 14:20 Visit Stop Time 14:50 Total Visit Minutes 30 Number of DIRECTOR OF OPTIMIZATION Visits 0 Physical Therapy Visit Comments Patient Comments She does not want this to happen again. She still has tingling in her right arm. Her balance seems to be ok now. Patient Goals return home Therapy Pain Assessment Pain When Pain Assessed During Mobility Pain Present Pain Present Denied Pain M4 PT-IP Mobility and Gait Start: 06/01/18 13:02 Freq: NEEDED Status: Active Protocol: Document 06/01/18 14:50 DLM (Rec: 06/01/18 16:46 DLM [id number]) PT-Bed Mobility Assessment Rolling Type of Rolling Bilateral Level of Assist Independent Supine to Sit Supine to Sit Independent Sit to Supine Sit to Supine Independent Scooting Scooting to Edge of Bed Independent Scooting Up and Down in Bed Independent PT-Transfer Assessment Sit to and From Stand Sit to and from Stand Independent Equipment Transfer Assistive Device None Transfers Transfer Destination Bed Chair Transfer Technique Stand Step Pivot Transfer Ability Level of Assist Independent Gait Assessment Gait Gait Assistance Required: Independent Distance (Feet) 300 Assistive Devices Assistive Device None Stair Climbing Assessment Evaluation Level of Assist On Stairs Independent Devices Stair Climbing Assistive Devices Right Railing Technique/Endurance Stair Climbing Direction Ascend and Descend Stair Climbing Technique Step Over Step Number of Steps Climbed 3 Query Text: Stair Climbing Set # Repetitions (reps) 1 PT-Balance Assessment Sitting Balance and Reactions Static Sitting Balance Ability Normal Dynamic Sitting Balance Ability Normal Standing Balance and Reactions Static Standing Balance Ability Good Dynamic Standing Balance Ability Good Device Used none Balance Tests Romberg independent, no losses of balance Comments Other Balance Tests/Deviations/Treatment also see OT noted for balance : tests performed with OT Functional Assessments Functional Tests 5 Times Sit to Stand 8.6 sec and 9.25 sec without UE support M5 PT-IP Objective Assessments Start: 06/01/18 13:02 Freq: NEEDED Status: Active Protocol: Document 06/01/18 14:50 DLM (Rec: 06/01/18 16:46 DLM [id number]) Orientation Orientation/Cognition Level of Alertness Alert Orientation Name Age Birthday Month Date Year Day of Week Place Situation Language Function Ability No Deficits Noted Safety Awareness Understands Safety Issues Comments see OT assessment for more details Gross Range of Motion Upper Extremity ROM Assessment Within Functional Limits Lower Extremity ROM Assessment Within Functional Limits Strength Upper Extremity Strength Assessment Right Impaired Shoulder see OT assessment for details Lower Extremity Strength Assessment Within Functional Limits Coordination Assessment Gross Coordination Gross Coordination WNL Sensation Assessment Sensation Gross Sensation Right UE Impaired Sensation Description Tingling Muscle Tone Muscle Tone WNL Yes M6 PT-IP Treatment Start: 06/01/18 13:02 Freq: NEEDED Status: Active Protocol: Document 06/01/18 14:50 DLM (Rec: 06/01/18 16:46 DLM [id number]) Physical Therapy Treatment Education Education Provided Safety Other Treatments Other Treatment Performed education on stress management M7 PT-IP Assessment and Plan Start: 06/01/18 13:02 Freq: NEEDED Status: Active Protocol: Document 06/01/18 14:50 DLM (Rec: 06/01/18 16:46 DLM [id number]) PT Summary Assessment and Plan Potential Rehabilitation Potential Excellent Status of Condition at Evaluation Evolving Summary Assessment Summary Maggie tolerated mobility and gait well. She demonstrates a safe gait pattern without a device. Her mobility is safe and independent. No LE deficits noted at this time. Right UE tingling continues. She appears safe to discharge home with her Spouse when medically stable. Education this visit focused on stress management to decrease her stroke risk factors. No further skilled physical therapy needs at this time. Will discharge physical therapy. Frequency of Treatment Frequency Of Treatment Discharge Recommendations To Nursing Amount of Assist Needed Independent Discharge Recommendations PT Discharge Recommendations Home Other Discharge Recommendations has supportive Spouse
--- NOTE | 2018-06-01 15:40 | OT.IP.EVAL ---
Past Medical History (Last Updated 05/31/18 @ 19:41 by Josy Owusu DO) Dyslipidemia (Chronic) GERD (gastroesophageal reflux disease) (Chronic) H/O: hysterectomy (Chronic) Hypertension (Chronic) Occupational Therapy Inpatient Evaluation/Re-Eval M1 PT/OT-IP Prior Functional Status Start: 06/01/18 14:28 Freq: NEEDED Status: Active Protocol: Document 06/01/18 15:00 [facility] (Rec: 06/01/18 15:40 [facility] [id number]) Medical Review Prior Functional Status Medical History Reviewed Yes Diet/Fluid Consistency Regular Thin Liquids Communication Independent Mobility and Gait Independent with no devices. Activities of Daily Living and IADL's Independent with ADl, IADL, medications, money management needs. Prior Functional Level (Other details) Pt states since Thursday has noted not been able to carry 5 gallon jug anymore and trouble lifting with right arm . Also noted since Thursday more numbness with right hand. Social History Household Members spouse Living Arrangements House Number of Floors (Floors) One Floor Number of Stairs To Enter/Railing? No steps to enter or within the house. Pt has a walk in shower with no steps, roll in shower. 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 Pt's in the room and PT came in the end of session. Patient/Caregiver Goals To go home. OT Pain Assessment Pain When Pain Assessed At Rest Pain Present Pain Present Denied Pain M4 OT- IP ADL's Start: 06/01/18 14:28 Freq: Status: Active Protocol: Document 06/01/18 15:00 [facility] (Rec: 06/01/18 15:40 [facility] [id number]) OT OAK-Xdgm-Txflsfh General Evaluation Diet Level for Self-Feeding Regular and Thin liquids Self-Feeding Ability Independent OT ADL-Grooming General Evaluation Grooming Ability Independent OT ADL-Oral Care General Eval Oral Care Ability Independent OT ADL-Dressing Comments OT Dressing Comments Pt states has been able to sit to do own LB dressing needs. OT ADL-Toileting Comments OT Toileting Comments Pt states independently using toilet in the room on her own. OT ADL-Bathing Comments OT Bathing Comments Pt not wanting to shower at this time. M5 OT- IP IADL's Start: 06/01/18 14:28 Freq: Status: Active Protocol: Document 06/01/18 15:00 [facility] (Rec: 06/01/18 15:40 [facility] [id number]) OT-Instrumental Activities of Daily Living Medication Management Medication Management Comments Prior pt able to do, due to STM deficits pt's to provide supervision. Money Management Money Management Comments Prior pt able to do, due to STM deficits, to provide assist or supervision. Driving Driving Comments Pt's states will do the driving from now to start. M6 OT- IP Functional Cognition Start: 06/01/18 14:28 Freq: Status: Active Protocol: Document 06/01/18 15:00 [facility] (Rec: 06/01/18 15:40 [facility] [id number]) Cognitive Factors Limiting Selfcare Function Cognitive Ability Level of Alertness Alert Patient Orientation Name Age Birthday Month Date Year Day of Week Place Situation Attention Span Ability Capable of Focused Attention Capable of Sustained Attention Ability to Follow Commands Able to Follow One Step Commands Able to Follow Multi-Step Commands Memory Description Short Term Impaired Safety Awareness No Deficits Noted Executive Function Ability Unable to Remember Details Cognitive Tests SLUMS Pt scored 24/30 normal is 27/ 30, pt score implies cognitive deficits. Pt having most difficulty with memory recall items and accuracy of drawing the clock hands. Cognitive Comments Cognitive Assessment Comments Pt scored 117 seconds on [place] [employer] Part B, pt's feels that she is having more difficulty with memory and executive thinking at this time and feels that he will do the driving to start. Pt's would like to wait and see how she does after going home and see if any further therapy my be needed. If so could be ordered from primary doctor. Spoke to pt about trying to focus on her well being, stress management, and allowing others to help her. M7 OT- IP Mobility and Balance Start: 06/01/18 14:28 Freq: Status: Active Protocol: Document 06/01/18 15:00 [facility] (Rec: 06/01/18 15:40 [facility] [id number]) OT- Bed Mobility Assessment Rolling Level of Assistance Independent Supine to Sit Supine to Sit Assist Independent Sit to Supine Sit to Supine Assist Independent Scooting Scooting to Edge of Bed Independent Scooting Up and Down in Bed Independent OT-Transfer Assessment Sit to and From Stand Sit to and from Stand Independent Transfers Transfer Ability Independent Technique Transfer Destination Bed Transfer Technique Stand Step Pivot Devices Transfer Assistive Devices None Comments Mobility Comments Pt independent in the room with no devices. OT- Gait Assessment Gait Gait Assistance Required: Independent Assistive Devices Assistive Device None OT- Balance Assessment Sitting Balance and Reactions Static Sitting Balance Ability Normal Dynamic Sitting Balance Ability Normal Standing Balance and Reactions Static Standing Balance Ability Normal Dynamic Standing Balance Ability Good Comments Other Balance Tests/Deviations/Treatment Pt able to stand on one foot : 10 seconds each side, tandem stand 3 seconds, able to get up and down from the floor without assist. Pt's feels that she is slight off for balance now, but attributes it to her not having actively exercising lately due to multiple stressors in her life lately. M8 OT- IP Objective Assessments Start: 06/01/18 14:28 Freq: Status: Active Protocol: Document 06/01/18 15:00 [facility] (Rec: 06/01/18 15:40 [facility] [id number]) OT Gross Range of Motion Upper Extremity Range of Motion Assessment Within Functional Limits OT Strength Comments Strength Comments RUE 4-/5, LUE 4/5. 9-Hole Peg Hand Test Hand Right Scoring Time 24 Interpretation Impaired Norm For Patients Age/Sex 25 Left Scoring Time 23 Interpretation Within Normal Range Norm For Patients Age/Sex 28 OT-Muscle Tone Assessment Muscle Tone WNL Yes OT Sensation Assessment Location Right All Fingers Light Touch Intact/Normal Deep Pressure Intact/Normal Tactile Localization Intact/Normal Stereognosis Intact/Normal Comments Summary Comments Pt notes slight numbness with right hand especially and slightly harder to tell between one and two points for sensation. M9 OT- IP Assessment and Plan Start: 06/01/18 14:28 Freq: Status: Active Protocol: Document 06/01/18 15:00 [facility] (Rec: 06/01/18 15:40 [facility] [id number]) OT Summary Assessment and Plan Potential Rehabilitation Potential Excellent Analytic Complexity at Evaluation Low Summary OT Impairments Strength Balance Functional Cognition Progress Towards Goals Progressing Toward Goals Assessment Summary Pt low complexity and main barrier is decreased short term memory, and high level dynamic balance and strength for RUE. Pt has a supportive and able to assist pt at home. would like to wait and see how things at home go before wanting to have outpt therapy for cognitive needs. Goals Bathing Goal Independent Patient/Caregiver Education Goal Demonstrate Energy Conservation and Pacing Caregiver Independent Assisting Patient OT-Other Goals Pt to be able to indentify stress management strategies to help in her lifestyle. Frequency of Treatment Frequency Of Treatment Once a Day Treatment Plan OT Treatment Plan Functional Mobility Patient/Family Education Discharge Planning Other Treatment Recommendations and Next Stress management, ACL, Treatment Focus theraputty exercises Discharge Recommendations OT Discharge Recommendations Home with Assistance
--- NOTE | 2018-06-01 17:21 | DI.MRI.S_ITS ---
PROCEDURE: MR STROKE Pre- and post-contrast brain MRI, non-contrast brain MR angiogram, pre- and postcontrast neck MR angiogram INDICATIONS: RIGHT ARM NUMBNESS TECHNIQUE: Brain: Noncontrast axial T1 spin echo, axial T2 fast spin echo, sagittal and axial FLAIR, coronal T2 fast spin echo, axial gradient echo, axial diffusion and ADC through the brain. After the administration of contrast, axial 3D VIBE of the cranial vasculature and brain. Brain MRA: Non-contrast 3-D time of flight MR angiogram, with multiple nejtwfs-vgvjqvvll-gwwaorzpbr (MIP) reformats performed. Neck MRA: Axial and sagittal TruFISP through the neck. Coronal dynamic MR angiogram during administration of contrast in the arterial and venous phases, with 3-dimenstional ofqqfcm-lvhiigbjo-pcucwznyej (MIP) reformats constructed from subtraction images. COMPARISON: [facility], CT, CT HEAD/BRAIN WO CON, 05/31/2018, 15:24. FINDINGS: Image quality: Excellent. BRAIN: CSF spaces: There is mild cerebral volume loss with prominence of the ventricles and sulci. Basal cisterns are patent. No extra-axial fluid collections. Brain: There is a small focus of restricted diffusion within the left thalamus with corresponding mild T2 hyperintensity. The findings are consistent with an acute to early subacute infarct. No evidence of corresponding hemorrhage on the GRE sequence. No intracranial hemorrhage, mass, or mass effect. There are scattered foci of subcortical and periventricular white matter T2 hyperintensity consistent with dcew-gl-slmyluyo chronic small vessel ischemic changes. Brainstem appears normal. Normal intravascular flow voids are present. No abnormal intracranial enhancement. Skull and face: Calvarial marrow signal is normal. Orbits appear normal. Sinuses: Sinuses and mastoids are clear. BRAIN MR ANGIOGRAM: Anterior circulation: Intracranial internal carotid arteries are normal in size and enhancement. The flow within the paired anterior cerebral arteries is normal and symmetric. The flow within the middle cerebral arteries is normal and symmetric. The anterior communicating artery is seen. No stenoses, occlusions, or aneurysms. Posterior circulation: The visualized portions of the vertebral arteries demonstrate normal caliber, and join to form a normal appearing basilar artery. The flow within the posterior cerebral arteries is normal and symmetric. No stenoses, occlusions, or aneurysms. NECK MR ANGIOGRAM: Carotids: Great vessels demonstrate a conventional anatomy as they arise from the aortic arch. The origins of the common carotid arteries appear patent. The calibers and courses of both common carotid arteries are normal. The bifurcation regions appear normal bilaterally. The carotid bulbs are widely patent. The internal carotid arteries demonstrate normal course and caliber. Posterior circulation: The origins of the vertebral arteries appear patent. More superior portions of both vertebral arteries demonstrate normal course and caliber, and join to form a normal appearing basilar artery. Miscellaneous: Subclavian arteries appear patent. Pre-contrast images through the neck show no soft tissue abnormalities. IMPRESSION: BRAIN MRI: 1. Small acute to early subacute lacunar infarct in the left thalamus. 2. No evidence of intracranial hemorrhage. 3. Mild to moderate chronic white matter small vessel ischemic changes and mild cerebral volume loss. BRAIN MR ANGIOGRAM: 1. No high-grade stenosis or occlusion of the central intracranial arteries. NECK MR ANGIOGRAM: 1. No high-grade stenosis or occlusion of the head and neck arteries. The carotid bulbs appear widely patent. Findings discussed with Dr. Monreal on 06/01/18 at 12:05 PM. Dictated by: Dandy Hill M.D. on 06/01/2018 at 12:02 Approved by: Dandy Hill M.D. on 06/01/2018 at 12:14
[2018-06-01] MEDS: CYCLOBENZAPRINE 10 MG TABLET PO (21:37)
[2018-06-01] MEDS: LOVASTATIN 20 MG TABLET PO (21:37)
[2018-06-01] MEDS: LORazepam 1 MG TABLET PO (21:37)
[2018-06-02 05:55] VITALS: BP 153/83; PULSE 89; RESP 16; TEMP 36.5; O2SAT 95
[2018-06-02 08:00] VITALS: BP 128/97; PULSE 86; RESP 18; TEMP 36.6; O2SAT 95; O2SAT 96
[2018-06-02] MEDS: ASPIRIN 325 MG TABLET PO (09:00)
[2018-06-02] MEDS: METOPROLOL ER 50 MG TABLET PO (09:00)
[2018-06-02] MEDS: ENOXAPARIN 40 MG/0.4 ML SYRINGE SUBCUT (09:01)
[2018-06-02] MEDS: PANTOPRAZOLE 20 MG TABLET PO (09:01)
[2018-06-02] MEDS: SODIUM CHLORIDE 0.9% FLUSH 10 ML IV ×2 (10:26→20:25)
[2018-06-02 12:00] VITALS: BP 145/82; PULSE 80; RESP 16; TEMP 36.7; O2SAT 96
--- NOTE | 2018-06-02 13:40 | OT.IP.TRT ---
Current Diagnoses Other cerebral infarction due to occlusion or stenosis of small artery (05/31/18) Occupational Therapy Treatment Note M2 OT-IP Current Condition Start: 06/01/18 14:28 Freq: Status: Active Protocol: Document 06/01/18 15:00 [facility] (Rec: 06/01/18 15:40 [facility] [id number]) Occupational Therapy Current Condition Current Condition Evaluation Date 06/01/18 Treatment Diagnosis Left Thalamus CVA Diagnosis Onset Date 05/31/18 M3 OT- IP Subjective and Pain Start: 06/01/18 14:28 Freq: Status: Active Protocol: Document 06/02/18 13:40 [facility] (Rec: 06/02/18 16:43 [facility] [id number]) OT- Subjective Occupational Therapy Visit Type Type Treatment Note Visit Start Time 12:50 Visit Stop Time 13:40 Total Visit Minutes 50 Notes Pt's here for education this session. Occupational Therapy Visit Comments Patient Comments I hope I can go home today. Patient/Caregiver Goals to get back to normal and start taking better care of myself OT Pain Assessment Pain When Pain Assessed After Treatment Pain Present Pain Present Denied Pain M4 OT- IP ADL's Start: 06/01/18 14:28 Freq: Status: Active Protocol: Document 06/01/18 15:00 [facility] (Rec: 06/01/18 15:40 [facility] [id number]) OT OFR-Rqxr-Dwttxsx General Evaluation Diet Level for Self-Feeding Regular and Thin liquids Self-Feeding Ability Independent OT ADL-Grooming General Evaluation Grooming Ability Independent OT ADL-Oral Care General Eval Oral Care Ability Independent OT ADL-Dressing Comments OT Dressing Comments Pt states has been able to sit to do own LB dressing needs. OT ADL-Toileting Comments OT Toileting Comments Pt states independently using toilet in the room on her own. OT ADL-Bathing Comments OT Bathing Comments Pt not wanting to shower at this time. M5 OT- IP IADL's Start: 06/01/18 14:28 Freq: Status: Active Protocol: Document 06/01/18 15:00 [facility] (Rec: 06/01/18 15:40 [facility] [id number]) OT-Instrumental Activities of Daily Living Medication Management Medication Management Comments Prior pt able to do, due to STM deficits pt's to provide supervision. Money Management Money Management Comments Prior pt able to do, due to STM deficits, to provide assist or supervision. 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 This has resulted in long hours of care giving by pt and high stress levels. Pt does have 2 other family members who could assist. Pt able to verbalize 2 -3 strategies for dividing this work load. very supportive . Pt/ had more questions about results of Trail[employer] B test. Pt completed test in 117 sec with normal score being <85 sec. Score of 117 sec is in mild to moderate impairment range (86-120 sec). Note that per AMA guidelines persons scoring > 180 sec on Trails B are at higher risk of auto accident in following year and pt is well below this cutoff. Pt/ agree that pt will not drive for now and will resume driving once MD approves. M7 OT- IP Mobility and Balance Start: 06/01/18 14:28 Freq: Status: Active Protocol: Document 06/01/18 15:00 [facility] (Rec: 06/01/18 15:40 [facility] [id number]) OT- Bed Mobility Assessment Rolling Level of Assistance Independent Supine to Sit Supine to Sit Assist Independent Sit to Supine Sit to Supine Assist Independent Scooting Scooting to Edge of Bed Independent Scooting Up and Down in Bed Independent OT-Transfer Assessment Sit to and From Stand Sit to and from Stand Independent Transfers Transfer Ability Independent Technique Transfer Destination Bed Transfer Technique Stand Step Pivot Devices Transfer Assistive Devices None Comments Mobility Comments Pt independent in the room with no devices. OT- Gait Assessment Gait Gait Assistance Required: Independent Assistive Devices Assistive Device None OT- Balance Assessment Sitting Balance and Reactions Static Sitting Balance Ability Normal Dynamic Sitting Balance Ability Normal Standing Balance and Reactions Static Standing Balance Ability Normal Dynamic Standing Balance Ability Good Comments Other Balance Tests/Deviations/Treatment Pt able to stand on one foot : 10 seconds each side, tandem stand 3 seconds, able to get up and down from the floor without assist. Pt's feels that she is slight off for balance now, but attributes it to her not having actviely exercising. 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 OT- Coordination Assessment Upper Extremity Finger to Nose Test Right UE Mildly Impaired based on 9 hole peg test Comments Coordination Comments WFL for use as dominant hand for self feeding and grooming with no functional deficits reported by pt OT-Muscle Tone Assessment Muscle Tone WNL Yes OT Sensation Assessment Comments Summary Comments Pt continues to report variable tingling in R forearm , hand and fingers, but states this is gradually improving. Edema Edema Absent M9 OT- IP Assessment and Plan Start: 06/01/18 14:28 Freq: Status: Active Protocol: Document 06/02/18 13:40 [facility] (Rec: 06/02/18 16:43 [facility] [id number]) OT Summary Assessment and Plan Potential Rehabilitation Potential Excellent Summary Progress Towards Goals Safe For Discharge Goals Met Assessment Summary Pt presents with mild R (dominant) hand strength deficits compared to L hand. See measurements above. However, strength deficits are not enough to interfere with ADLS and pt using R hand dominantly for all self care tasks without functional difficulties. Deferred any R hand strengthening exercises as pt has R middle trigger finger and did not want to aggravate that condition with repetitive resistive finger flexion exercises. Provided education re: trigger finger splinting at night as pt's finger is frequently locked when she awakens. Pt and verbalize understanding of stress reduction strategies and reducing her caregiver burden for her sister. very supportive of this. All OT goals achieved for this admission. Pt plans to d/c home with when medically stable. 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 Pt agrees not to drive for 2 weeks and then only if MD approves. No further OT services needed. Frequency of Treatment Frequency Of Treatment Discharge Discharge Recommendations OT Discharge Recommendations Home with Assistance
[2018-06-02 15:00] VITALS: O2SAT 96
[2018-06-02 16:00] VITALS: BP 131/72; PULSE 76; RESP 18; TEMP 36.6
[2018-06-02] MEDS: LORazepam 1 MG TABLET PO (20:24)
[2018-06-02] MEDS: CYCLOBENZAPRINE 10 MG TABLET PO (20:24)
[2018-06-02] MEDS: LOVASTATIN 20 MG TABLET PO (20:24)
[2018-06-02 20:43] VITALS: BP 155/91; PULSE 72; RESP 18; TEMP 36.6
[2018-06-03 00:30] VITALS: BP 134/68; PULSE 73; RESP 16; TEMP 36.9; O2SAT 96
[2018-06-03 03:32] VITALS: O2SAT 95
[2018-06-03 06:20] VITALS: BP 133/79; PULSE 74; RESP 18; TEMP 36.6; O2SAT 95
[2018-06-03 08:15] VITALS: BP 121/77; PULSE 80; RESP 16; TEMP 36.3; O2SAT 96
[2018-06-03] MEDS: SODIUM CHLORIDE 0.9% FLUSH 10 ML IV (08:59)
[2018-06-03] MEDS: PANTOPRAZOLE 20 MG TABLET PO (08:59)
[2018-06-03] MEDS: METOPROLOL ER 50 MG TABLET PO (08:59)
[2018-06-03] MEDS: ASPIRIN 325 MG TABLET PO (09:00)
--- NOTE | 2018-06-03 09:04 | P.DS_ITS ---
History of Present Illness Chief complaint: rt arm numbness, stumbling, light headed Discharge Providers Date of admission: 05/31/18 16:58 Discharge Date: 06/03/18 Primary care physician: Jim Cantu MD Consults: 05/31/18 17:21 Consult to Discharge Planning Routine Comment: Consult to Occupational Therapy Evaluate & Treat Comment: Physician Instructions: Evaluate and treat Consult to Physical Therapy Evaluate & Treat Comment: Physician Instructions: Evaluate and Treat Consult to Speech Therapy Evaluate & Treat Comment: Physician Instructions: Evaluate and treat 06/01/18 17:24 Consult to Physical Therapy Evaluate & Treat Comment: Physician Instructions: Evaluate and Treat Discharge provider: Jim Cantu MD Summary Discharge Diagnosis: Embolic CVA Hypertension Hyperlipidemia Palpitations as is Hospital Course: patient was admitted with numbness of her right arm and a sense of not being able to move her right hand crackly no speech changes facial droop difficulty swallowing dizziness headache trauma fevers or chills. Right leg was not involved. Patient was admitted evaluated and her tingling and hand symptoms did persist with through the ER and so she was admitted for further workup evaluation and observation. Subsequent MRI with MRA and appropriate cont rast showed a small an embolic appearing infarct in the left brain consistent with the area involving her right arm. No other masses bleeding. Evaluation of her circulation showed carotids and internal vasculature the brain all nonobstructive and no stenoses. Subsequent echocardiogram showed that she did not have any major valvular dysfunction had no abnormal movement or significant atrial enlargement. On telemetry during her 2+ stays here showed no arrhythmia of note. Status at Discharge Cognitive/behavioral status at discharge: at baseline, oriented Functional status at discharge: independent ambulation Overall status at discharge: patient is back to baseline Time Spent with Patient Greater than 30 minutes Exam Vital Signs (past 8 hours): - 06/03/18 03:32 06/03/18 06:20 06/03/18 08:15 Temperature 97.8 F 97.4 F L Pulse Rate 74 80 Respiratory Rate 18 16 Blood Pressure 133/79 121/77 Pulse Oximetry 95 95 96 Oxygen Delivery Method Room Air Oxygen Flow Rate 0 Narrative Exam Narrative: sitting alert PERRLA EOM is intact Neck without mass Lungs clear to auscultation percussion His CV is shows regular rate and rhythm without murmur or significant edema Abdomen without mass or hepatosplenomegaly or tenderness Back without soreness decreased range of motion Skin without rash Neuro shows cranial nerves intact speech clear sensory and motor are intact and symmetrical with exception of some trace finger tip tingling on the right hand motor there is normal Objective Labs Result Diagrams: 06/01/18 05:11 06/01/18 05:11 Discharge Plan Discharge Plan Patient Disposition: Home Discharge Med Rec/Prescriptions Prescriptions: New aspirin 325 mg Tablet 325 mg PO DAILY Qty: 30 RF: 0 Continued metoprolol succinate 50 mg tablet extended release 24 hr 50 mg PO DAILY RF: 0 metronidazole 0.75 % lotion 1 applic topical BID RF: 0 omeprazole 20 mg capsule,delayed release(DR/EC) 20 mg PO DAILY RF: 0 lorazepam 1 mg tablet 1 mg PO BEDTIME RF: 0 lovastatin 20 mg tablet 20 mg PO QPM RF: 0 Discontinued cyclobenzaprine 10 mg tablet 10 mg PO BEDTIME RF: 0 Follow up/Referrals: Jim Cantu MD [Primary Care Provider] - Provider Discharge Instructions Diet: Diet as Tolerated Skin/Wound/Dressing Care Report to your healthcare provider any signs of infection, such as:: chills, fever Visit Report/Discharge Packet Instructions: DI for Stroke-Ischemic Discharge Data Primary Care Provider: Jim Cantu Attending Provider: Fritz Monreal Admit Date/Time: 05/31/18 16:58
[2018-06-03 09:14] VITALS: O2SAT 95
--- NOTE | 2018-06-03 10:53 | PC.NURSE ---
AM NOTE - pt is awake, sitting dangle position, no complaints discomfort, continues to have on/off tingling r fingers, speech is clear, appropriate, no difficulties with mobilization or balance, discussed bm and reports she did have one yesterday, 1+ pedal, tele sr, in this am and will dc home, icu notified and tele and saline lock dc'd, reviewed dc instructions with pt and spouse, belongings gathered, including cell phones, tablets and chargers, tsf to [place] and escorted to family car.
--- NOTE | 2018-06-03 13:03 | CM.DPNOTE ---
DC Note: Cleared by PT for safe DC home, no barriers. DC home today w/supportive spouse. NELLIE Delaney
--- NOTE | 2018-06-25 13:00 | PM.PN.1 ---
Subjective Date Patient Seen: 06/02/18 Time Patient Seen: 08:21 Interval history: Patient seen in follow-up for right arm weakness balance disturbance and numbness into her right hand. Denies any worsening of neurologic function and has not had any hand of palpitations shortness of breath significant dizziness nausea or vomiting. She feels very close to her baseline from before admission with admission being primarily for suspicion of CVA. No evolution or progression at this point. Exam Vital Signs (past 8 hours): Oxygen Delivery Method Room Air Oxygen Flow Rate 0 Narrative Exam Narrative: Patient alert smiling comfortable and not having any progressive neurologic complaints PERRLA Neck without mass and is supple Lungs are clear Heart shows regular rate and rhythm without murmur clicks or rubs Abdomen soft no hepatosplenomegaly mass noted and bowel sounds are present Extremities without cyanosis or significant edema Shows cranial nerves 2 through 12 intact motor and sensory symmetrical and intact with exception of some very slight right hand sensation Objective Labs Result Diagrams: 06/01/18 05:11 06/01/18 05:11 Assessment & Plan Assessment & Plan narrative: Assessment 1. Right arm and hand numbness and weakness with suspicion for possible CVA. No speech abnormality noted felt that she was recovering quickly since she was admitted has been on aspirin. Stable at this point and continue to improve Assessment 2 hypertension improving blood pressure will monitor closely and adjust blood pressure medicines on outpatient basis Assessment 3 hyperlipidemia. Will continue lovastatin and recheck at appropriate interval Assessment for balance difficulty think that is a part of this presentation will question about stroke significantly better today will work on physical therapy and anticipate discharge in a.m. Esophageal reflux. Symptoms significantly controlled with omeprazole will stay on the current medication.
== END 2018-06-03 10:15 | disposition home or self-care (01) | DRG 66 ==
LOC: ED 16:40 → AC 06-01 06:52
PROVIDERS: Admitting Provider Family Medicine; Emergency Provider Emergency Medicine; PCP Family Medicine; Visit Provider Family Medicine
DX: I63.81 Other cerebral infarction due to occlusion or stenosis of small artery (principal); G83.21 Monoplegia of upper limb affecting right dominant side; R26.89 Other abnormalities of gait and mobility; I10 Essential (primary) hypertension; E78.5 Hyperlipidemia, unspecified; G47.00 Insomnia, unspecified; K21.9 Gastro-esophageal reflux disease without esophagitis; R07.9 Chest pain, unspecified
CPT/HCPCS: 36415; 70450; 70553; 71045; 80048; 80053; 81003; 82550; 83690; 84484; 85025; 85610; 85730; 92523; 92610; 93005; 93041; 93306; 97127; 97162; 97165; 97530; 99284; 99285; 99291; A9579; J1650

== ENCOUNTER → 2018-09-09 10:55 | Outpatient (CLI) | payer MEDICARE, OTHER, SELFPAY ==
[2018-05-31 18:05] VITALS: BMI 25.4
--- NOTE | 2018-09-09 | DI.MG.S_ITS ---
BILATERAL DIGITAL SCREENING MAMMOGRAM 3D/2D WITH CAD: 09/09/2018 CLINICAL: Routine screening. Comparison is made to exams dated: 08/28/2017 mammogram, 08/05/2016 mammogram, and 07/23/2015 mammogram - [facility]. The tissue of both breasts is heterogeneously dense. This may lower the sensitivity of mammography. Current study was also evaluated with a Computer Aided Detection (CAD) system. No significant masses, calcifications, or other findings are seen in either breast. There has been no significant interval change. IMPRESSION: NEGATIVE There is no mammographic evidence of malignancy. A 1 year screening mammogram is recommended. This exam was interpreted at Station ID: [id number]. NOTE: For mammograms, a report in lay terms will be sent to the patient. Approximately 15% of breast malignancies will not be visualized mammographically. In the management of a palpable breast mass, a negative mammogram must not discourage biopsy of a clinically suspicious lesion. Electronically Signed By: Randolph mckenna/debora:09/09/2018 11:39:55 letter sent: Normal Exam ACR BI-RADS Category 1: Negative 3341F
== END ==
PROVIDERS: PCP Family Medicine; Visit Provider Family Medicine
DX: Z12.31 Encounter for screening mammogram for malignant neoplasm of breast (principal)
CPT/HCPCS: 77063; 77067

== ENCOUNTER → 2019-12-21 15:35 | Outpatient (CLI) | payer MEDICARE, OTHER, SELFPAY ==
[2018-05-31 18:05] VITALS: BMI 25.4
--- NOTE | 2019-12-21 15:39 | DI.RAD.S_ITS ---
PROCEDURE: XR CHEST 2V INDICATIONS: COUGH TECHNIQUE: 2 views of the chest were acquired. COMPARISON: [facility], CR, XR CHEST 1V, 05/31/2018, 14:12. FINDINGS: Surgical changes and devices: None. Lungs and pleura: Lungs are clear. No pleural effusions or pneumothorax. Mediastinum: Mediastinal contours are normal. Heart size is normal. Bones and chest wall: No suspicious bony abnormalities. Soft tissues appear unremarkable. IMPRESSION: No acute disease. Dictated by: Compa Lobato M.D. on 12/21/2019 at 16:34 Approved by: Compa Lobato M.D. on 12/21/2019 at 16:39
== END ==
PROVIDERS: PCP Family Medicine; Referring Provider Student in an Organized Health Care Education/Training Program; Visit Provider Student in an Organized Health Care Education/Training Program
DX: R05 Cough (principal)
CPT/HCPCS: 71046

== ENCOUNTER → 2019-12-26 10:43 | Outpatient (CLI) | payer MEDICARE, OTHER, SELFPAY ==
[2018-05-31 18:05] VITALS: BMI 25.4
[2019-12-27 00:26] LABS: COVID19 Sendout Not Detected (Not Detect)
== END ==
PROVIDERS: PCP Family Medicine; Visit Provider Physician Assistant
DX: Z11.59 Encounter for screening for other viral diseases (principal)
CPT/HCPCS: 87635

== ENCOUNTER → 2019-12-29 10:50 | Outpatient (CLI) | payer MEDICARE, OTHER, SELFPAY ==
[2018-05-31 18:05] VITALS: BMI 25.4
--- NOTE | 2020-01-06 16:31 | PM.PFT.1 ---
Pulmonary Function Test Referral & Results Date Patient Seen: 12/29/19 Requesting provider: Natalia Weber Results: The spirometry demonstrates an FVC of 1.64 L which is 66% of predicted. The FEV1 was measured at 1.36 L which is 73% of predicted. The FEV1/FVC ratio was 83 which is 109% of predicted. Following the administration of bronchodilator there was at 36% improvement in FEF 25-75%. Lung volumes show an SVC of 1.60 L which is 65% of predicted. The diffusing capacity was measured at 13.52 which is 71% of predicted. No hemoglobin value was provided, so no correction for potential anemia could be made, if appropriate. The maximum voluntary ventilation was reduced Interpretation: This study demonstrates both mild obstructive and restrictive lung disease which together are balanced in suggest more of an interstitial process. There is evidence of minimal benefit following bronchodilator in small airway flow based on improvement in FEF 25-75% as above There reduction diffusing capacity also is consistent with interstitial disease process. Clinical correlation suggested
== END ==
PROVIDERS: PCP Family Medicine; Referring Provider Student in an Organized Health Care Education/Training Program; Visit Provider Student in an Organized Health Care Education/Training Program
DX: R05 Cough (principal); J98.8 Other specified respiratory disorders; Z87.891 Personal history of nicotine dependence
CPT/HCPCS: 94060; 94726; 94729

== ENCOUNTER → 2020-01-27 11:35 | Outpatient (CLI) | payer MEDICARE, OTHER, SELFPAY ==
[2018-05-31 18:05] VITALS: BMI 25.4
--- NOTE | 2020-01-27 11:37 | DI.MG.S_ITS ---
BILATERAL DIGITAL SCREENING MAMMOGRAM 3D/2D WITH CAD: 01/27/2020 CLINICAL: Routine screening. Family history of breast cancer. Comparison is made to exams dated: 09/09/2018 mammogram, 08/28/2017 mammogram, 08/05/2016 mammogram, 07/23/2015 mammogram, and 07/21/2014 mammogram - [facility]. The tissue of both breasts is heterogeneously dense. This may lower the sensitivity of mammography. Current study was also evaluated with a Computer Aided Detection (CAD) system. No significant masses, calcifications, or other findings are seen in either breast. There has been no significant interval change. IMPRESSION: NEGATIVE There is no mammographic evidence of malignancy. A 1 year screening mammogram is recommended. This exam was interpreted at Station ID: [id number]. NOTE: For mammograms, a report in lay terms will be sent to the patient. Approximately 15% of breast malignancies will not be visualized mammographically. In the management of a palpable breast mass, a negative mammogram must not discourage biopsy of a clinically suspicious lesion. Electronically Signed By: Aaron yepez/debora:01/31/2020 09:31:22 letter sent: Normal Exam ACR BI-RADS Category 1: Negative 3341F
== END ==
PROVIDERS: PCP Family Medicine; Referring Provider Student in an Organized Health Care Education/Training Program; Visit Provider Student in an Organized Health Care Education/Training Program
DX: Z12.31 Encounter for screening mammogram for malignant neoplasm of breast (principal); Z80.3 Family history of malignant neoplasm of breast
CPT/HCPCS: 77063; 77067

== ENCOUNTER → 2021-02-21 11:37 | Outpatient (CLI) | payer MEDICARE, OTHER, SELFPAY ==
[2018-05-31 18:05] VITALS: BMI 25.4
--- NOTE | 2021-02-21 11:40 | DI.MG.S_ITS ---
BILATERAL DIGITAL SCREENING MAMMOGRAM 3D/2D WITH CAD: 02/21/2021 CLINICAL: Routine screening. Family history of breast cancer. Comparison is made to exams dated: 01/27/2020 mammogram, 09/09/2018 mammogram, and 08/28/2017 mammogram - [facility]. The tissue of both breasts is heterogeneously dense. This may lower the sensitivity of mammography. Current study was also evaluated with a Computer Aided Detection (CAD) system. No significant masses, calcifications, or other findings are seen in either breast. There has been no significant interval change. IMPRESSION: NEGATIVE There is no mammographic evidence of malignancy. A 1 year screening mammogram is recommended. This exam was interpreted at Station ID: [id number]. NOTE: For mammograms, a report in lay terms will be sent to the patient. Approximately 15% of breast malignancies will not be visualized mammographically. In the management of a palpable breast mass, a negative mammogram must not discourage biopsy of a clinically suspicious lesion. Electronically Signed By: Juan Bang M.D., jr/debora:02/21/2021 12:37:54 letter sent: Normal Exam ACR BI-RADS Category 1: Negative 3341F
== END ==
PROVIDERS: PCP Family Medicine; Referring Provider Family Medicine; Visit Provider Family Medicine
DX: Z12.31 Encounter for screening mammogram for malignant neoplasm of breast (principal); Z80.3 Family history of malignant neoplasm of breast
CPT/HCPCS: 77063; 77067

== ENCOUNTER → 2022-02-28 09:53 | Outpatient (CLI) | payer MEDICARE, OTHER, SELFPAY ==
[2018-05-31 18:05] VITALS: BMI 25.4
[2022-02-28 10:55] LABS: COVID19 -Nasal RAPID Negative (Negative)
--- NOTE | 2022-03-05 09:03 | PM.PFT.1 ---
Pulmonary Function Test Referral & Results Date Patient Seen: 02/28/22 Requesting provider: Andrea Mackay Results: The spirometry demonstrates an FVC of 1.80 L which is 76% of predicted. The FEV1 was measured at 1.52 L which is 86% of predicted. The FEV1/FVC ratio was 85 which is 112% of predicted. Following the administration of bronchodilator there was a 60% improvement in FEF 25-75%. Lung volumes show an SVC of 1.81 L which is 76% of predicted. The diffusing capacity was measured at 13.18 which is 69% of predicted. The maximum voluntary ventilation was normal Interpretation: This study demonstrates probably normal spirometry although there is a probable very minimal reduction in lung volumes suggesting the presence of very very mild restrictive lung disease Diffusing capacity is moderately reduced suggesting disease at the capillary alveolar level Compared to PFTs performed in December 2019, current study shows improvement in spirometry and essentially no change in diffusing capacity Clinical correlation suggested
== END ==
PROVIDERS: PCP Family Medicine; Referring Provider Family Medicine; Visit Provider Family Medicine
DX: R05.3 Chronic cough (principal); Z87.891 Personal history of nicotine dependence; Z20.822 Contact with and (suspected) exposure to COVID-19; J98.8 Other specified respiratory disorders
CPT/HCPCS: 87635; 94060; 94726; 94729; C9803

== ENCOUNTER → 2022-02-28 10:02 | Outpatient (CLI) | payer MEDICARE, OTHER, SELFPAY ==
[2018-05-31 18:05] VITALS: BMI 25.4
--- NOTE | 2022-02-28 | DI.MG.S_ITS ---
BILATERAL DIGITAL SCREENING MAMMOGRAM 3D/2D WITH CAD: 02/28/2022 CLINICAL: Routine screening. Family history of breast cancer. Comparison is made to exams dated: 02/21/2021 mammogram, 01/27/2020 mammogram, 09/09/2018 mammogram, 08/28/2017 mammogram, and 08/05/2016 mammogram - [facility]. Both breasts are heterogeneously dense, which may obscure small masses (category c / 51-75% glandular tissue). Current study was also evaluated with a Computer Aided Detection (CAD) system. No significant masses, calcifications, or other findings are seen in either breast. There has been no significant interval change. IMPRESSION: NEGATIVE There is no mammographic evidence of malignancy. A 1 year screening mammogram is recommended. Based on the Tyrer Cuzick model (a risk assessment model) the patient's lifetime risk is 6.6% and her 10 year risk is 6.0%. According to the ACR, ACS, and NCCN guidelines, an annual breast MRI exam along with mammogram is recommended if the patient's lifetime risk is 20% or greater. This exam was interpreted at Station ID: [id number]. NOTE: For mammograms, a report in lay terms will be sent to the patient. Approximately 15% of breast malignancies will not be visualized mammographically. In the management of a palpable breast mass, a negative mammogram must not discourage biopsy of a clinically suspicious lesion. Electronically Signed By: Aaron yepez/debora:03/04/2022 08:06:56 letter sent: Normal Exam ACR BI-RADS Category 1: Negative 3341F
== END ==
PROVIDERS: PCP Family Medicine; Referring Provider Family Medicine; Visit Provider Family Medicine
DX: Z12.31 Encounter for screening mammogram for malignant neoplasm of breast (principal); Z78.0 Asymptomatic menopausal state; Z80.3 Family history of malignant neoplasm of breast; M81.0 Age-related osteoporosis without current pathological fracture; Z79.83 Long term (current) use of bisphosphonates; Z90.710 Acquired absence of both cervix and uterus; R05.3 Chronic cough; Z87.891 Personal history of nicotine dependence; Z20.822 Contact with and (suspected) exposure to COVID-19; J98.8 Other specified respiratory disorders
CPT/HCPCS: 77063; 77067; 77080; 87635; 94060; 94726; 94729; C9803

== ENCOUNTER 2022-05-09 08:03 | Day surgery (SDC) | payer MEDICARE, OTHER, SELFPAY ==
[2018-05-31 18:05] VITALS: BMI 25.4
--- NOTE | 2022-05-09 | PATH_ITS ---
[facility] Accession Number: [id number] No. of containers..02 Tissue . 01 Material submitted: . PART A: colon - TRANSVERSE PART B: rectum - RECTAL . 01 Diagnosis: A. Transverse Colon, Biopsy: Colonic mucosa with no significant diagnostic abnormality. Negative for active inflammation, granulomas, dysplasia, and malignancy. . B. Rectum, Biopsy: Polypoid squamous mucosa with mild reactive changes, consistent with hypertrophic anal papilla. No evidence of neoplasm. MRV 05/14/2022 1247 Local . 01 Electronically signed: . Kye Moses MD, PhD, Pathologist NPI- [id number] . 01 Gross description: . Part A: TRANSVERSE: Received in formalin are 3 fragment(s) of pineda, soft tissue measuring 0.3 x 0.2 x 0.1 cm to 0.2 x 0.1 x 0.1 cm submitted entirely in 1 cassette(s) Part B: RECTAL: Received in formalin is 1 fragment(s) of pineda, soft tissue measuring 0.1 x 0.1 x 0.1 cm submitted entirely in 1 cassette(s) /CPE 05/10/2022 0800 Local . 01 Pathologist provided ICD-10: K62.1, Z12.11 . 01 CPT . 141336, [id number] Specimen Comment: A courtesy copy of this report has been sent to [facility] Pathology Performed at: 01 [facility] [address] [place] [address], [place], [place] [id number] MD Dandy Myles MD Phone: [phone]
[2022-05-09 08:42] VITALS: BP 148/87; PULSE 75; RESP 16; TEMP 36.4; O2SAT 98
[2022-05-09] MEDS: LACTATED RINGERS 1,000 ML 84 ML IV (08:55)
--- NOTE | 2022-05-09 09:44 | P.HP_ITS ---
History of Present Illness History of Present Illness Chief complaint: [facility] Narrative: Mrs. Naranjo presents for a screening colonoscopy. Last colonoscopy was about 15 years ago and was normal without polyps to her knowledge. She thinks it was actually done here at [facility]. She has no family history of colon cancer. Last time she notes that the colon was not fully cleaned out but this time she feels that it is. She has had pretty extensive gynecologic surgical history with oophorectomy salpingo-oophorectomy and then total hysterectomy at separate times. She reports no bleeding or other concerning symptoms. Patient History Medical History (Updated 05/09/22 @ 09:46 by Mar France MD) Dyslipidemia GERD (gastroesophageal reflux disease) Hypertension Surgical History (Updated 05/31/18 @ 19:41 by Josy Owusu DO) H/O: hysterectomy Family & Social History Social History: household members spouse Tobacco & Substance use: Smoking Status Never smoker alcohol intake current alcohol intake frequency holiday/special occasion Substance Use Type does not use Meds Home Medications and Allergies Home Medications Medication Instructions Recorded Confirmed Type lorazepam 1 mg tablet 1 mg PO BEDTIME 05/31/18 05/09/22 History metoprolol succinate 50 mg 50 mg PO DAILY 05/31/18 05/09/22 History tablet,extended release 24 hr metronidazole 0.75 % lotion 1 applic topical BID 05/31/18 05/09/22 History omeprazole 20 mg capsule,delayed 20 mg PO DAILY 05/31/18 05/09/22 History release aspirin 325 mg tablet 325 mg PO DAILY #30 tabs 06/03/18 05/09/22 Rx sodium sul 1.479 gram-potas ch See Rx Instructions PO PER PKG DIR 04/03/22 05/09/22 Rx 0.188 gram-magnes sul 0.225 gram #24 tabs tablet (Sutab) Vitamin D3 Complete See Rx Instructions .Route .COMPLEX 05/09/22 05/09/22 History cyclobenzaprine 10 mg tablet See Rx Instructions .Route .COMPLEX 05/09/22 05/09/22 History gabapentin 100 mg tablet 100 mg PO BEDTIME 05/09/22 05/09/22 History ibuprofen 200 mg tablet 200 mg PO Q6H PRN Pain (Scale 05/09/22 05/09/22 History Score 4-6) magnesium 200 mg tablet 200 mg PO BID 05/09/22 05/09/22 History melatonin 5 mg tablet 5 mg PO BEDTIME PRN Sleep 05/09/22 05/09/22 History rosuvastatin 20 mg tablet 20 mg PO DAILY 05/09/22 05/09/22 History Allergies Allergy/AdvReac Type Severity Reaction Status Date / Time No Known Drug Allergies Allergy Verified 05/31/18 13:56 Exam Vital Signs (past 8 hours): - 05/09/22 08:42 Temperature 97.6 F Pulse Rate 75 Respiratory Rate 16 Blood Pressure 148/87 H Pulse Oximetry 98 Oxygen Delivery Method Room Air Oxygen Delivery Method Room Air Const General: cooperative, healthy appearing and comfortable HENMT Head: normal to inspection Resp Effort & Inspection: normal respiratory effort and able to speak in complete sentences Cardio Pulses: radial pulses present GI Palpation: soft and No tender Assessment & Plan Assessment and plan (1) Screening for colon cancer: Status: Acute Assessment & Plan narrative: I discussed the risks benefits and alternatives of a screening colonoscopy with Mrs. Naranjo including but not limited to perforation of the colon and incomplete exam. She understands these risks and would like to proceed today. Time Spent With Patient Critical Care time: I spent a total of [] minutes of critical care time on this patient's care today; this time is exclusive of procedural time.
[2022-05-09 10:58] VITALS: BP 118/75; PULSE 64; RESP 12; TEMP 36.1; O2SAT 97
[2022-05-09 11:04] VITALS: BP 110/75; PULSE 62; RESP 13; O2SAT 98
[2022-05-09 11:08] VITALS: BP 125/73; PULSE 62; RESP 12; O2SAT 98
[2022-05-09 11:13] VITALS: BP 138/91; PULSE 65; RESP 14; TEMP 36.2; O2SAT 97
[2022-05-09 12:03] VITALS: BP 148/87; PULSE 75; RESP 16; TEMP 36.8; O2SAT 98
--- NOTE | 2022-05-09 14:01 | PM.OP.COLON ---
Procedure & Clinicians Study performed: Colonoscopy, biopsy Same procedure as scheduled: Yes Indications: Screening Surgeon: Mar France Procedure Notes Procedure in detail: Patient was taken to the endoscopy suite and placed in a left lateral decubitus position. A time-out was performed. Anesthesia was induced with conscious sedation and the help of anesthesiologist. Digital rectal exam was performed no masses or strictures were. The colonoscope was then introduced into the anal canal and advanced through to the cecum. Several maneuvers were required to intubate the cecum. Including placing her supine and providing abdominal pressure and using stiffener for the scope. We were able to enter the cecum and a photograph was obtained of the appendiceal orifice. On that photograph you can see the poor quality of her prep. Her [place] bowel prep scores 1 it is poor. This definitely did limit the exam some what although we did see and biopsy to polyps as we withdrew slowly. One small polyp in the transverse colon. As the rectum was traversed a retroflex was performed. During this maneuver a small polyp was seen. There were also some areas associated with hemorrhoids she may have been skin tags but appeared somewhat irregular and so were biopsied. Both of these to bites taken with the forceps were sent in the same specimen jar. There was some bleeding from these very low rectal polypectomies and therefore a Surgifoam was placed into the rectum. The patient tolerated the procedure well and went good condition to the postoperative care unit. Scope withdrawal time: 25 minutes totak Findings: polyp(s) Specimen(s): other (1. Transverse colon polyp, small 2. Rectal polyp) Complications: none Post-procedure Plan for aftercare: Due to poor prep the follow-up recommendation will be to have a 2 day extended prep in a more contracted follow-up timeframe.
== END 2022-05-09 12:16 | disposition home or self-care (01) ==
PROVIDERS: PCP Family Medicine; Referring Provider Surgery; Visit Provider Surgery
PROC: 0DJD8ZZ Inspection of Lower Intestinal Tract, Via Natural or Artificial Opening Endoscopic (ICD-10-PCS; CPT 45378; principal; 2022-05-09 09:15)
DX: Z12.11 Encounter for screening for malignant neoplasm of colon (principal); K64.8 Other hemorrhoids; K62.1 Rectal polyp
CPT/HCPCS: 45380; J2704; J3010

== ENCOUNTER → 2022-09-13 16:27 | Outpatient (CLI) | payer MEDICARE, OTHER, SELFPAY ==
[2018-05-31 18:05] VITALS: BMI 25.4
--- NOTE | 2022-09-13 16:47 | DI.RAD.S_ITS ---
PROCEDURE: XR ANKLE LT MIN 3V INDICATIONS: Left ankle swelling TECHNIQUE: 3 views of the ankle were acquired. COMPARISON: None. FINDINGS: Bones: No fractures or dislocations. Ankle mortise is normally aligned. No suspicious bony lesions. Soft tissues: No tibiotalar joint effusion. Achilles tendon appears normal. Moderate soft tissue swelling overlying the left ankle and distal left lower leg. IMPRESSION: Moderate soft tissue swelling of the left ankle and left lower leg without underlying fracture or dislocation. No suspicious osseous erosions. If there are persistent symptoms or clinical suspicion for pathology, then repeat radiographs or advanced imaging (CT or MRI) may be considered for further evaluation. Dictated by: Randolph Block M.D. on 09/13/2022 at 16:30 Approved by: Randolph Block M.D. on 09/13/2022 at 16:31
== END ==
PROVIDERS: PCP Family Medicine; Referring Provider Physician Assistant; Visit Provider Physician Assistant
DX: M25.472 Effusion, left ankle (principal)
CPT/HCPCS: 73610

== ENCOUNTER → 2022-11-16 14:44 | Outpatient (CLI) | payer MEDICARE, OTHER, SELFPAY ==
[2018-05-31 18:05] VITALS: BMI 25.4
--- NOTE | 2022-11-16 | DI.MRI.S_ITS ---
PROCEDURE: MR LUMBAR SPINE WO CON INDICATIONS: LUMBAR RADICULOPATHY TECHNIQUE: Noncontrast sagittal T1 spin echo and T2 fast echo, sagittal STIR, and T2 fast spin echo through the lumbar spine. In cases with scoliosis, additional coronal T2 fast spin echo may be performed. COMPARISON: None. FINDINGS: Image quality: Excellent. Alignment and Curvature: There is trace retrolisthesis of L4 on L5. Bone Marrow: Marrow is of normal overall signal. Increased T1 and T2 signal is present at T12 most suggestive of hemangioma. No acute vertebral body compression fractures. Spinal Cord: Conus medullaris terminates at the L1-2 level. Visualized cord demonstrates normal signal and size. Paraspinous Soft Tissues: No paravertebral masses. Simple left renal cyst is present. T12-L1: No disc bulge, spinal stenosis or foraminal narrowing. L1-L2: No disc bulge, spinal stenosis or foraminal narrowing. L2-L3: Minimal disc bulge without spinal stenosis. Minimal left foraminal narrowing with facet and ligamentum flavum hypertrophy. L3-L4: Mild disc bulge without spinal stenosis. Mild bilateral foraminal narrowing with facet and ligamentum flavum hypertrophy. L4-L5: Mild disc bulge with minimal canal narrowing. Mild bilateral foraminal narrowing with facet and ligamentum flavum hypertrophy. L5-S1: Mild disc bulge with moderate spinal stenosis. [id number] right foraminal narrowing with facet and ligamentum flavum hypertrophy. IMPRESSION: Multilevel disc bulges. Spinal stenosis is most prominent L5-S1 secondary to disc bulge. Multilevel foraminal narrowing most notable at L5-S1 secondary to facet/ligamentum flavum arthropathy. Dictated by: Kristin Mckeon M.D. on 11/17/2022 at 17:11 Approved by: Kristin Mckeon M.D. on 11/17/2022 at 17:14
== END ==
PROVIDERS: PCP Family Medicine; Referring Provider Family Medicine; Visit Provider Family Medicine
DX: M51.16 Intervertebral disc disorders with radiculopathy, lumbar region (principal); M51.17 Intervertebral disc disorders with radiculopathy, lumbosacral region; M48.061 Spinal stenosis, lumbar region without neurogenic claudication; M48.07 Spinal stenosis, lumbosacral region; M81.0 Age-related osteoporosis without current pathological fracture
CPT/HCPCS: 72148

== ENCOUNTER → 2022-12-15 11:48 | Outpatient (CLI) | payer MEDICARE, OTHER, SELFPAY ==
[2018-05-31 18:05] VITALS: BMI 25.4
[2022-12-15 12:46] LABS: Add Manual Diff / Slide Review NO; Basophils Absolute Auto 0 /uL (0-100); Basophils Percent Auto 0.6 % (0-2); Eosinophils Absolute Auto 300 /uL (0-450); Eosinophils Percent Auto 5.1 % (2-4); Hematocrit 30.6 % (36-46); Hemoglobin 9.9 g/dL (12.0-16.0); Lymphocytes Absolute Auto 1400 /uL (1100-4500); Lymphocytes Percent Auto 25.1 % (25-40); Mean Corpuscular HGB Conc 32.5 % (30-36); Mean Corpuscular Hemoglobin 25.9 PG (26-34); Mean Corpuscular Volume 79.8 fL (80-100); Monocytes Absolute Auto 700 /uL (0-900); Monocytes Percent Auto 13.2 % (3-14); Neutrophils Absolute Auto 3100 /uL (1500-7000); Platelet Count 325 X10^3/uL (150-400); Red Blood Cell Count 3.83 X10^6/uL (4.0-5.2); Red Cell Distribution Width 16.6 % (11.6-14.8); White Blood Cell Count 5.5 X10^3/uL (4.5-11.0)
[2022-12-15 13:20] LABS: BUN Creatinine Ratio 17.1 (6-22); Blood Urea Nitrogen 22 mg/dL (7-17); Calcium 10.2 mg/dL (8.4-10.2); Carbon Dioxide 31 mmol/L (22-32); Chloride 100 mmol/L (98-107); Estimated Glomerular Filt Rate 43 mL/min (>60); Glucose 107 mg/dL (80-110); HEMOLYSIS < 15 (0-50); Potassium 4.9 mmol/L (3.4-5.1); Sodium 137 mmol/L (137-145)
[2022-12-15 13:24] LABS: Hemoglobin A1C% w Est Avg Glu 6.3 % (4.0-6.0)
== END ==
PROVIDERS: PCP Family Medicine; Referring Provider Orthopaedic Surgery Orthopaedic Surgery of the Spine; Visit Provider Orthopaedic Surgery Orthopaedic Surgery of the Spine
DX: Z01.818 Encounter for other preprocedural examination (principal); R73.9 Hyperglycemia, unspecified; Z01.812 Encounter for preprocedural laboratory examination
CPT/HCPCS: 36415; 80048; 83036; 85025; 93005; 93010

== ENCOUNTER 2022-12-22 06:10 | Day surgery (SDC) | payer MEDICARE, OTHER, SELFPAY ==
[2018-05-31 18:05] VITALS: BMI 25.4
[2022-12-17 15:17] VITALS: BMI 31.2
[2022-12-22] VITALS (7 sets, daily range): BP systolic 104–154; BP diastolic 69–88; PULSE 68–85; RESP 13–16; TEMP 36.2–36.3; O2SAT 95–99; BMI 31.2
[2022-12-22] MEDS: METOPROLOL IR 25 MG TABLET PO (06:55)
[2022-12-22] MEDS: ACETAMINOPHEN 325 MG TABLET 975 MG PO (06:55)
[2022-12-22] MEDS: LACTATED RINGERS 1,000 ML 42 ML IV (06:56)
--- NOTE | 2022-12-22 07:41 | PM.PREOP ---
Pre-operative Note Interval Note History & Physical reviewed/Exam performed by Physician: Yes Changes to H&P: No
[2022-12-22] MEDS: CEFAZOLIN 2 GM/100 ML PREMIX 100 ML IV (08:00)
--- NOTE | 2022-12-22 08:08 | SUR.OPER ---
Prone on spine table, head in foam head support, padded chest and pelvic supports, gel pad at knees, lower legs supported by pillows; nipples, genitalia and toes free of pressure, arms secured on foam padded arm boards at <90 degrees abduction. Tape over blanket at thigh secured to table.
[2022-12-22] MEDS: BUPIVACAINE 0.25% (PF) 30 ML, EPINEPHrine 0.15 MG INJ (08:13)
--- NOTE | 2022-12-22 08:46 | PM.OP.1 ---
Operative Date/Time/Diagnoses Date of procedure: 12/22/22 Time of procedure: 07:40 Pre-op diagnosis: 1. L5-S1 spinal stenosis 2. L5-S1 epidural lipomatosis Post-op diagnosis: same Procedure & Clinicians Procedure: 1. L5-S1 laminectomy with partial facetectomy 2. Utilization of microsurgical technique and operating microscope Same procedure as scheduled: Yes Indications: Patient has been having chronic back pain and worsening lumbar radiculopathy and symptoms neurogenic claudication. Patient failed multiple conservative management with worsening pain weakness and numbness in her lower extremity. Patient has been having difficulty performing activity of daily living. After discussing risks benefits of treatment options, patient elected proceed with surgery. Surgeon: Chip Valdes Cementer Helper: Izzy Newman Click Yes if Unassisted: No Anesthesia Type: General Operative Notes Closure Type: primary Estimated Blood Loss (mL): 5 Blood products transfused: none Procedure in detail: Patient was seen in the preoperative area. Risks and benefits of the surgery was discussed with the patient. Informed consent was obtained from the patient and placed in the chart. Surgical site was marked. Patient was taken to the operative room. General anesthesia was administered. Prophylactic antibiotic was given to the patient less than 30 min before the incision was made. Patient was placed into a prone position on the Leland table. Patient's back was then prepped and draped in the sterile fashion. Time-out was performed at this time. Using AP and lateral C-arm imaging the interval between L5-S1 was identified and marked on patient's back. A 1 inch incision 1 in from midline was made on the left side. The fascia was incised in line with skin incision. Globus MARS retractors was placed inside the incision and docked onto the L5 lamina. Using microsurgical technique and operating microscope, a L5 laminectomy was performed using a Kerrison rongeur. Liagamentum flavum was resected at the site of the laminotomy. Either side of the dura was exposed. Bilateral partial facetcomies was performed to further decompress the lateral recess. Patient was found have significant amount of epidural lipomatosis within the epidural space. The epidural lipoma this was carefully resected using a pituitary micro curettes and Kerrison rongeur to further decompress the epidural space. After the laminectomy was completed, the area medial lateral superior and inferior to the area of the laminectomy was inspected and explored using a micro curette. No other impinging structure was identified. The wound was then irrigated with sterile normal saline. 40 mg Depo-Medrol was placed into the epidural space. The deep fascia was closed with 1-0 Vicryl. The subcutaneous tissue was closed with 2-0 Vicryl. The skin was closed with 4-0 Monocryl. Patient tolerated the procedure well. There were no complications. Patient was transferred recovery room in stable condition. Complications: none Post-operative Condition: stable Disposition: PACU Plan for aftercare: Discharge to home
--- NOTE | 2022-12-22 09:12 | DI.RAD.S_ITS ---
PROCEDURE: XR LUMBAR SPINE 2-3V INDICATIONS: L5-S1 LAMINECTOMY TECHNIQUE: 2 views of the lumbar spine were acquired. COMPARISON: None. FINDINGS: Spot fluoroscopic intraoperative images of the lumbar spine. A metal device is seen at the level of the L5-S1 disc space on the left. Surgical clips are seen projecting over the pelvis. IMPRESSION: Intraoperative images demonstrate a radiopaque marker at the L5-S1 disc space level. Approved by: Paresh Salinas M.D. on 12/22/2022 at 15:53
[2022-12-22] MEDS: OXYCODONE IR 5 MG TABLET PO (09:14)
== END 2022-12-22 09:38 | disposition home or self-care (01) ==
PROVIDERS: PCP Family Medicine; Referring Provider Orthopaedic Surgery Orthopaedic Surgery of the Spine; Visit Provider Orthopaedic Surgery Orthopaedic Surgery of the Spine
PROC: (CPT 63047; principal; 2022-12-22 07:45)
DX: M48.07 Spinal stenosis, lumbosacral region (principal); D17.79 Benign lipomatous neoplasm of other sites
CPT/HCPCS: 63047; 72100; 76000; J0171; J0690; J2405; J2704; J2920; J3010

== ENCOUNTER → 2023-03-17 10:27 | Outpatient (CLI) | payer MEDICARE, OTHER, SELFPAY ==
[2018-05-31 18:05] VITALS: BMI 25.4
--- NOTE | 2023-03-17 10:29 | DI.MG.S_ITS ---
BILATERAL DIGITAL SCREENING MAMMOGRAM 3D/2D WITH CAD: 03/17/2023 CLINICAL: Routine screening. Family history of breast cancer. Comparison is made to exams dated: 02/28/2022 mammogram, 02/21/2021 mammogram, and 01/27/2020 mammogram - [facility]. Both breasts are heterogeneously dense, which may obscure small masses (category c / 51-75% glandular tissue). Current study was also evaluated with a Computer Aided Detection (CAD) system. No significant masses, calcifications, or other findings are seen in either breast. There has been no significant interval change. IMPRESSION: NEGATIVE There is no mammographic evidence of malignancy. A 1 year screening mammogram is recommended. Based on the Tyrer Cuzick model (a risk assessment model) the patient's lifetime risk is 6.1% and her 10 year risk is 6.1%. According to the ACR, ACS, and NCCN guidelines, an annual breast MRI exam along with mammogram is recommended if the patient's lifetime risk is 20% or greater. This exam was interpreted at Station ID: [id number]. NOTE: For mammograms, a report in lay terms will be sent to the patient. Approximately 15% of breast malignancies will not be visualized mammographically. In the management of a palpable breast mass, a negative mammogram must not discourage biopsy of a clinically suspicious lesion. Electronically Signed By: Randolph mckenna/debora:03/17/2023 16:52:59 letter sent: Normal Exam ACR BI-RADS Category 1: Negative [id number]
== END ==
LOC: MAMMO 10:28
PROVIDERS: PCP Family Medicine; Referring Provider Family Medicine; Visit Provider Family Medicine
DX: Z12.31 Encounter for screening mammogram for malignant neoplasm of breast (principal); Z80.3 Family history of malignant neoplasm of breast; R92.333 Mammographic heterogeneous density, bilateral breasts
CPT/HCPCS: 77063; 77067

== ENCOUNTER → 2023-03-26 14:49 | Outpatient (CLI) | payer MEDICARE, OTHER, SELFPAY ==
[2018-05-31 18:05] VITALS: BMI 25.4
--- NOTE | 2023-03-26 | DI.MRI.S_ITS ---
PROCEDURE: MR LUMBAR SPINE WO CON INDICATIONS: spinal stenosis TECHNIQUE: Noncontrast sagittal T1 spin echo and T2 fast echo, sagittal STIR, and T2 fast spin echo through the lumbar spine. In cases with scoliosis, additional coronal T2 fast spin echo may be performed. COMPARISON: [facility], MR, MR LUMBAR SPINE WO CON, 11/16/2022, 14:56. FINDINGS: Image quality: Excellent. Alignment and Curvature: There is normal bony alignment. Bone Marrow: Marrow is of normal overall signal. No acute vertebral body compression fractures. Spinal Cord: Conus medullaris terminates at the L1 level. Visualized cord demonstrates normal signal and size. Paraspinous Soft Tissues: No paravertebral masses. There is a T2 hyperintense left upper pole renal cystic lesion which is incompletely characterized. T12-L1: Normal appearance. L1-L2: Normal appearance. L2-L3: Mild disc bulge. Mild facet ligamentum flavum hypertrophy. No canal stenosis. No foraminal narrowing. Findings are unchanged from the prior study. L3-L4: Mild disc bulge. Moderate facet ligamentum flavum hypertrophy. No canal stenosis. No foraminal narrowing. Findings are unchanged. L4-L5: Mild disc bulge. Severe facet ligamentum flavum hypertrophy. No canal stenosis. Mild bilateral foraminal stenosis. Findings are unchanged. L5-S1: Epidural lipomatosis, unchanged. Moderate facet ligamentum flavum hypertrophy. Mild canal stenosis. Mild right foraminal narrowing. No left foraminal stenosis. Findings are unchanged. IMPRESSION: 1. No significant canal stenosis or foraminal narrowing of the lumbar spine. Findings are similar in extent to the study dated November 16, 2022. 2. Epidural lipomatosis at L5-S1 as before. ictated by: Lavinia Aguilar M.D. on 03/26/2023 at 16:09 Approved by: Lavinia Aguilar M.D. on 03/26/2023 at 16:13
== END ==
LOC: MRI 14:50
PROVIDERS: PCP Family Medicine; Referring Provider Orthopaedic Surgery Orthopaedic Surgery of the Spine; Visit Provider Orthopaedic Surgery Orthopaedic Surgery of the Spine
DX: M48.07 Spinal stenosis, lumbosacral region (principal); M51.36 Other intervertebral disc degeneration, lumbar region; M47.816 Spondylosis without myelopathy or radiculopathy, lumbar region; M47.817 Spondylosis without myelopathy or radiculopathy, lumbosacral region
CPT/HCPCS: 72148

== ENCOUNTER → 2024-03-19 12:20 | Outpatient (CLI) | payer MEDICARE, OTHER, SELFPAY ==
[2018-05-31 18:05] VITALS: BMI 25.4
--- NOTE | 2024-03-19 | DI.MG.S_ITS ---
BILATERAL DIGITAL SCREENING MAMMOGRAM 3D/2D WITH CAD: 03/19/2024 CLINICAL: Routine screening. Family history of breast cancer. Comparison is made to exams dated: 03/17/2023 mammogram, 02/21/2021 mammogram, and 02/28/2022 mammogram - [facility]. The breasts are heterogeneously dense, which may obscure small masses (category c / 51-75% glandular tissue). Current study was also evaluated with a Computer Aided Detection (CAD) system. No significant masses, calcifications, or other findings are seen in either breast. There has been no significant interval change. IMPRESSION: NEGATIVE There is no mammographic evidence of malignancy. A 1 year screening mammogram is recommended. Based on the Tyrer Cuzick model (a risk assessment model) the patient's lifetime risk is 5.6% and her 10 year risk is 0.0%. According to the ACR, ACS, and NCCN guidelines, an annual breast MRI exam along with mammogram is recommended if the patient's lifetime risk is 20% or greater. This exam was interpreted at Station ID: [id number]. NOTE: For mammograms, a report in lay terms will be sent to the patient. Approximately 15% of breast malignancies will not be visualized mammographically. In the management of a palpable breast mass, a negative mammogram must not discourage biopsy of a clinically suspicious lesion. Electronically Signed By: Ishmael buchanan/debora:03/21/2024 11:48:37 letter sent: Normal Exam ACR BI-RADS Category 1: Negative
== END ==
PROVIDERS: PCP Family Medicine; Referring Provider Family Medicine; Visit Provider Family Medicine
DX: Z12.31 Encounter for screening mammogram for malignant neoplasm of breast (principal); Z80.3 Family history of malignant neoplasm of breast; R92.333 Mammographic heterogeneous density, bilateral breasts
CPT/HCPCS: 77063; 77067

== ENCOUNTER 2024-06-23 13:20 | Emergency (ER) | payer MEDICARE, OTHER, SELFPAY ==
[2018-05-31 18:05] VITALS: BMI 25.4
[2024-06-23] VITALS (8 sets, daily range): BP systolic 110–134; BP diastolic 61–73; PULSE 69–81; RESP 12–23; TEMP 36.4–36.6; O2SAT 97–100; BMI 28.1
--- NOTE | 2024-06-23 13:35 | EKG_ITS ---
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
--- NOTE | 2024-06-23 13:37 | DI.RAD.S_ITS ---
PROCEDURE: XR CHEST 1V INDICATIONS: chest pain TECHNIQUE: One view of the chest was acquired. COMPARISON: [facility], CR, XR CHEST 2V, 12/21/2019, 15:29. [facility], CR, XR CHEST 1V, 05/31/2018, 14:12. FINDINGS: Surgical changes and devices: None. Lungs and pleura: Lungs are clear. No pleural effusions or pneumothorax. Mediastinum: Aortic arch calcifications. Mediastinal contours appear normal. Heart size is normal. Bones and chest wall: No suspicious bony lesions. Overlying soft tissues appear unremarkable. IMPRESSION: No acute cardiothoracic process. Dictated by: Kali Perez M.D. on 06/23/2024 at 14:15 Approved by: Kali Perez M.D. on 06/23/2024 at 14:16
[2024-06-23 13:55] LABS: Add Manual Diff / Slide Review NO; Basophils Absolute Auto 0 /uL (0-100); Basophils Percent Auto 0.5 % (0-2); Eosinophils Absolute Auto 200 /uL (0-450); Eosinophils Percent Auto 2.9 % (2-4); Hematocrit 36.6 % (36-46); Hemoglobin 12.3 g/dL (12.0-16.0); Lymphocytes Absolute Auto 1600 /uL (1100-4500); Lymphocytes Percent Auto 27.4 % (25-40); Mean Corpuscular HGB Conc 33.5 % (30-36); Mean Corpuscular Hemoglobin 29.5 PG (26-34); Mean Corpuscular Volume 87.9 fL (80-100); Monocytes Absolute Auto 600 /uL (0-900); Monocytes Percent Auto 10.2 % (3-14); Neutrophils Absolute Auto 3400 /uL (1500-7000); Platelet Count 303 X10^3/uL (150-400); Red Blood Cell Count 4.16 X10^6/uL (4.0-5.2); Red Cell Distribution Width 15.1 % (11.6-14.8); White Blood Cell Count 5.7 X10^3/uL (4.5-11.0)
[2024-06-23 14:04] LABS: PTT Partial Thromboplastin Tim 29 SECONDS (25.1-36.5)
--- NOTE | 2024-06-23 15:07 | ED.ARRPALP ---
HPI - Arrhythmia/Palpitations General Chief Complaint: Arrhythmia/Palpitations Stated Complaint: Light headed, Shakes Time Seen by Provider: 06/23/24 14:36 Source: patient Mode of arrival: Wheelchair History of Present Illness HPI narrative: Patient here with spouse for complaints of off and on palpitations and dizziness ranging from a few minutes to 3 hour sessions. Symptoms started about 3 weeks ago but more frequent now. Primary care sent patient here for evaluation. Dr. Phillip. Patient denies any chest pain. No new neuro complaints. Patient has history of stroke in 2019. No syncope no dyspnea no diaphoresis no nausea. Patient already has a Zio patch on Related Data Home Medications Medication Instructions Recorded Confirmed metoprolol succinate 50 mg 50 mg PO DAILY 05/31/18 12/22/22 tablet,extended release 24 hr metronidazole 0.75 % lotion 1 applic topical BID 05/31/18 09/13/22 omeprazole 20 mg capsule,delayed 20 mg PO DAILY 05/31/18 12/22/22 release Vitamin D3 Complete See Rx Instructions .Route .COMPLEX 05/09/22 09/13/22 cyclobenzaprine 10 mg tablet See Rx Instructions .Route .COMPLEX 05/09/22 12/22/22 gabapentin 100 mg tablet 100 mg PO BEDTIME 05/09/22 12/22/22 melatonin 5 mg tablet 5 mg PO BEDTIME PRN Sleep 05/09/22 12/22/22 rosuvastatin 20 mg tablet 20 mg PO DAILY 05/09/22 12/22/22 semaglutide 1 mg/dose (4 mg/3 mL) 1 mg SUBCUT QWEEK 06/23/24 06/23/24 subcutaneous pen injector (Ozempic) Previous Rx's Medication Instructions Recorded aspirin 325 mg tablet 325 mg PO DAILY #30 tabs 06/03/18 Allergies Allergy/AdvReac Type Severity Reaction Status Date / Time No Known Drug Allergies Allergy Verified 06/23/24 13:36 Review of Systems Review of Systems Narrative: GENERAL: Negative chills, fatigue, malaise, fever, sweats. HEENT: Negative sinus pain, ear pain, sore throat RESPIRATORY: Negative dyspnea, cough CARDIOVASCULAR: Negative chest pain, positive palpitations GASTROINTESTINAL: Negative vomiting, nausea, abdominal pain : Negative dysuria, frequency, hematuria MUSCULOSKELETAL: Negative muscle or bony pain SKIN: Negative rash, skin lesions NEUROLOGIC: Negative weakness, numbness ROS Unobtainable: All systems reviewed & are unremarkable except as noted in HPI and below Patient History Medical History (Updated 06/23/24 @ 16:08 by Messi Hayden MD) Benign lipomatous neoplasm of other sites Spinal stenosis HLD (hyperlipidemia) Hypertension Dyslipidemia GERD (gastroesophageal reflux disease) Surgical History (Updated 12/17/22 @ 15:21 by Brenda Ross RN) Hx of colonoscopy (05/09/22) H/O: hysterectomy Social History (Updated 05/31/18 @ 19:41 by Josy Owusu DO) household members: spouse Smoking Status: Never smoker alcohol intake: current substance use type: does not use Smoking Status: Never smoker alcohol intake frequency: holidays/special occasions only Exam Narrative Exam Narrative: GENERAL: in no distress, not toxic not dyspneic HEAD: Normocephalic. EYES: Pupils equal round ENT: Mucous membranes moist. NECK: Trachea midline. CARDIOVASCULAR: Regular rate and rhythm RESPIRATORY: Clear to auscultation. Breath sounds equal bilaterally. No wheezes, rales, or rhonchi. GASTROINTESTINAL: Abdomen soft, non-tender EXTREMITIES: No gross deformities. BACK: No flank tenderness. NEURO: AOx4. Clear speech SKIN: Warm and dry PSYCH: Not anxious, is cooperative Initial Vital Signs Initial Vital Signs: Vital Signs Temperature 98 F 06/23/24 13:30 Pulse Rate 81 06/23/24 13:30 Respiratory Rate 17 06/23/24 13:30 Blood Pressure 134/61 06/23/24 13:30 Pulse Oximetry 99 06/23/24 13:30 Oxygen Delivery Method Room Air 06/23/24 13:30 Course Orders Ordered: Discontinued Medications Aspirin (Aspirin 81 Mg Chew Tab) 324 mg PO NOW ONE Stop: 06/23/24 13:38 Last Admin: 06/23/24 13:50 Dose: Not Given Documented By: SPF Vital Signs Vital signs: Vital Signs - 8 hr 06/23/24 13:30 06/23/24 14:13 06/23/24 14:30 Temperature 98 F Pulse Rate 81 77 75 Respiratory Rate 17 16 Blood Pressure 134/61 Pulse Oximetry 99 98 98 Oxygen Delivery Method Room Air 06/23/24 14:31 06/23/24 14:31 Temperature Pulse Rate 75 Respiratory Rate 22 Blood Pressure 114/73 Pulse Oximetry 99 Oxygen Delivery Method Room Air MDM - Arrhythmia/Palpitations Lab Data 06/23/24 13:45 06/23/24 15:23 Labs: Lab Results 06/23/24 06/23/24 Range/Units 13:45 15:23 WBC 5.7 (4.5-11.0) X10^3/uL RBC 4.16 (4.0-5.2) X10^6/uL Hgb 12.3 (12.0-16.0) g/dL Hct 36.6 (36-46) % MCV 87.9 (80-100) fL MCH 29.5 (26-34) PG MCHC 33.5 (30-36) % RDW 15.1 H (11.6-14.8) % Plt Count 303 (150-400) X10^3/uL Neut % (Auto) 59.0 (50-75) % Lymph % (Auto) 27.4 (25-40) % Allen % (Auto) 10.2 (3-14) % Eos % (Auto) 2.9 (2-4) % Baso % (Auto) 0.5 (0-2) % Neut # (Auto) 3400 (0254-4466) /uL Lymph # (Auto) 1600 (9555-3001) /uL Allen # (Auto) 600 (0-900) /uL Eos # (Auto) 200 (0-450) /uL Baso # (Auto) 0 (0-100) /uL PT 11.0 (9.4-12.5) SECONDS INR 1.0 (0.9-1.3) APTT 29 (25.1-36.5) SECONDS Sodium 133 L (137-145) mmol/L Potassium 3.7 (3.4-5.1) mmol/L Chloride 94 L (98-107) mmol/L Carbon Dioxide 32 (22-32) mmol/L BUN 20 H (7-17) mg/dL Creatinine 1.68 H (0.52-1.04) mg/dL Estimated GFR 31 L (>60) mL/min BUN/Creatinine Ratio 11.9 (6-22) Glucose 94 (70-99) mg/dL Calcium 9.5 (8.4-10.2) mg/dL Magnesium 2.1 (1.6-2.3) mg/dL Total Bilirubin 0.7 (0.2-1.3) mg/dL AST 29 (14-36) IU/L ALT 24 (<35) IU/L Alkaline Phosphatase 58 (38-126) U/L Total Creatine Kinase 63 (30-135) U/L Troponin I < 0.012 (0.01-0.034) ng/mL NT-Pro-B Natriuret Pep 56 (<450) pg/mL Total Protein 7.1 (6.3-8.2) g/dL Albumin 4.3 (3.5-5.0) g/dL Globulin 2.8 (1.7-4.1) g/dL Albumin/Globulin Ratio 1.5 (1.0-2.8) Lipase 210 (23-300) U/L Imaging Data Chest x-ray: Radiologist's Impresson: [address] [address] XRay Report Signed Patient: Maggie Naranjo MR#: [id number] : 1945 Acct:[id number] Age/Sex: 79 / F Date of Service: 06/23/24 Loc: ED Accession Number: [id number] Procedure: XR chest 1V Ordering Provider: Messi Hayden MD PROCEDURE: XR CHEST 1V INDICATIONS: chest pain TECHNIQUE: One view of the chest was acquired. COMPARISON: [facility], CR, XR CHEST 2V, 12/21/2019, 15:29. [facility], CR, XR CHEST 1V, 05/31/2018, 14:12. FINDINGS: Surgical changes and devices: None. Lungs and pleura: Lungs are clear. No pleural effusions or pneumothorax. Mediastinum: Aortic arch calcifications. Mediastinal contours appear normal. Heart size is normal. Bones and chest wall: No suspicious bony lesions. Overlying soft tissues appear unremarkable. IMPRESSION: No acute cardiothoracic process. Dictated by: Kali Perez M.D. on 06/23/2024 at 14:15 Approved by: Kali Perez M.D. on 06/23/2024 at 14:16 MDM Narrative Medical decision making narrative: Patient here with spouse for complaints of off and on palpitations and dizziness ranging from a few minutes to 3 hour sessions. Symptoms started about 3 weeks ago but more frequent now. Primary care sent patient here for evaluation. Dr. Phillip. Patient denies any chest pain. No new neuro complaints. Patient has history of stroke in 2019. No syncope no dyspnea no diaphoresis no nausea. Patient already has a Zio patch on After history and exam, CBC CMP EKG troponin chest x-ray [facility] Medical records reviewed: No recent visit for this complaint Differential considered: Includes but not limited to sick sinus syndrome atrial flutter atrial fibrillation SVT Lab Test results independently reviewed as above. Pertinent findings: WBC 5.7 hemoglobin 12.3 hematocrit 36.6 INR 1.0 sodium 133 potassium 3.7 BUN 20 creatinine 1.68 GFR 31 troponin less than 0.012 magnesium 2.1 calcium 9.5 Independently reviewed EKG normal sinus rhythm rate 81 Imaging studies independently reviewed: Chest x-ray no acute finding Consultations: 3:42 p.m.. Spoke with primary care provider dr phillip, reviewed results with him. They are reassuring at this time. Patient already has Zio patch. Patient can be discharge to home and he will follow up with patient this week. Re-evaluations: 4:08 p.m.. Updated patient and results and my discussion with primary care provider. Reassuring right now. No new medications indicated at this time. Will proceed with Zio patch observation. They understand and agree. Return precautions reviewed and they desire discharge home Discussion: Appropriate for discharge home. Patient already has a Zio patch for another 12 days. Primary Care was contacted. Would like patient discharged home and follow up in the office. Return precautions reviewed with patient. No new prescriptions indicated this time. They desire discharge home. No arrhythmia here during course of stay on monitor. Diagnosis: Palpitation Discharge Plan Departure Patient Disposition: Home Clinical Impression: Palpitations Instructions: DI for Palpitations Activity Restrictions/Additional Instructions: Your exam and laboratory studies are reassuring. Your family doctor was contacted today. Please continue home medications. No new prescriptions are indicated this time. Return if worse if any questions or concerns. Prescriptions: No Action metoprolol succinate 50 mg tablet extended release 24 hr 50 mg PO DAILY Patient Comments: TK 1 T PO ONCE D FOR BLOOD PRESSURE CONTROL metronidazole 0.75 % lotion 1 applic topical BID omeprazole 20 mg capsule,delayed release(DR/EC) 20 mg PO DAILY aspirin 325 mg Tablet 325 mg PO DAILY Qty: 30 0RF rosuvastatin 20 mg Tablet 20 mg PO DAILY gabapentin 100 mg Tablet 100 mg PO BEDTIME melatonin 5 mg Tablet 5 mg PO BEDTIME PRN (Reason: Sleep) Vitamin D3 Complete See Rx Instructions .ROUTE .COMPLEX Rx Instructions: sleep cyclobenzaprine 10 mg tablet See Rx Instructions .ROUTE .COMPLEX Rx Instructions: muscle relax Ozempic 1 mg/dose (4 mg/3 mL) Pen Injector 1 mg SUBCUT QWEEK Referrals: Andrea Phillip MD [Primary Care Provider] - Stand Alone Forms: Patient Portal/API/Survey
[2024-06-23 15:45] LABS: Alanine Aminotransferase 24 IU/L (<35); Albumin 4.3 g/dL (3.5-5.0); Albumin Globulin Ratio 1.5 (1.0-2.8); Alkaline Phosphatase 58 U/L (38-126); Aspartate Aminotransferase 29 IU/L (14-36); BUN Creatinine Ratio 11.9 (6-22); Bilirubin Total 0.7 mg/dL (0.2-1.3); Blood Urea Nitrogen 20 mg/dL (7-17); Calcium 9.5 mg/dL (8.4-10.2); Carbon Dioxide 32 mmol/L (22-32); Chloride 94 mmol/L (98-107); Creatine Kinase 63 U/L (30-135); Estimated Glomerular Filt Rate 31 mL/min (>60); Globulin 2.8 g/dL (1.7-4.1); Glucose 94 mg/dL (70-99); HEMOLYSIS < 15 (0-50); Lipase 210 U/L (23-300); Magnesium 2.1 mg/dL (1.6-2.3); Potassium 3.7 mmol/L (3.4-5.1); Sodium 133 mmol/L (137-145); Total Protein 7.1 g/dL (6.3-8.2)
[2024-06-23 15:57] LABS: NT-proBNP (BNP-Adult 18+) 56 pg/mL (<450); Troponin I < 0.012 ng/mL (0.01-0.034)
== END 2024-06-23 16:22 | disposition home or self-care (01) ==
PROVIDERS: Emergency Provider Emergency Medicine; PCP Family Medicine
DX: R00.2 Palpitations (principal); R07.9 Chest pain, unspecified; R42 Dizziness and giddiness
CPT/HCPCS: 36415; 71045; 80053; 82550; 83690; 83735; 83880; 84484; 85025; 85610; 85730; 93005; 93010; 99283; 99284

== ENCOUNTER 2024-06-27 15:17 | Emergency (ER) | payer MEDICARE, OTHER, SELFPAY ==
[2018-05-31 18:05] VITALS: BMI 25.4
[2024-06-27] VITALS (10 sets, daily range): BP systolic 111–153; BP diastolic 71–93; PULSE 82–109; RESP 13–23; TEMP 36.9; O2SAT 95–99; BMI 27.7
--- NOTE | 2024-06-27 15:30 | EKG_ITS ---
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
--- NOTE | 2024-06-27 15:30 | DI.RAD.S_ITS ---
PROCEDURE: XR CHEST 1V INDICATIONS: chest pain TECHNIQUE: One view of the chest was acquired. COMPARISON: [facility], STEVE, XR CHEST 1V, 06/23/2024, 13:45. [facility], CR, XR CHEST 1V, 05/31/2018, 14:12. FINDINGS: Surgical changes and devices: None. Lungs and pleura: Lungs are clear. No pleural effusions or pneumothorax. Mediastinum: Mediastinal contours appear normal. Heart size is normal. Bones and chest wall: No suspicious bony lesions. Overlying soft tissues appear unremarkable. IMPRESSION: No acute cardiopulmonary abnormality is seen. Approved by: Paresh Salinas M.D. on 06/27/2024 at 16:34
[2024-06-27 15:58] LABS: Add Manual Diff / Slide Review NO; Basophils Absolute Auto 0 /uL (0-100); Basophils Percent Auto 0.3 % (0-2); Eosinophils Absolute Auto 200 /uL (0-450); Hematocrit 38.1 % (36-46); Hemoglobin 12.8 g/dL (12.0-16.0); Lymphocytes Absolute Auto 1200 /uL (1100-4500); Lymphocytes Percent Auto 18.4 % (25-40); Mean Corpuscular HGB Conc 33.6 % (30-36); Mean Corpuscular Hemoglobin 29.6 PG (26-34); Mean Corpuscular Volume 88.3 fL (80-100); Monocytes Absolute Auto 600 /uL (0-900); Monocytes Percent Auto 9.6 % (3-14); Neutrophils Absolute Auto 4300 /uL (1500-7000); Neutrophils Percent Auto 68.7 % (50-75); Platelet Count 309 X10^3/uL (150-400); Red Blood Cell Count 4.32 X10^6/uL (4.0-5.2); Red Cell Distribution Width 14.9 % (11.6-14.8); White Blood Cell Count 6.3 X10^3/uL (4.5-11.0)
[2024-06-27 16:05] LABS: Prothrombin Time 11.2 SECONDS (9.4-12.5)
[2024-06-27 16:08] LABS: PTT Partial Thromboplastin Tim 35 SECONDS (25.1-36.5)
[2024-06-27 16:09] LABS: Alanine Aminotransferase 28 IU/L (<35); Albumin 4.8 g/dL (3.5-5.0); Albumin Globulin Ratio 1.6 (1.0-2.8); Alkaline Phosphatase 58 U/L (38-126); Aspartate Aminotransferase 35 IU/L (14-36); BUN Creatinine Ratio 13.5 (6-22); Bilirubin Total 0.9 mg/dL (0.2-1.3); Blood Urea Nitrogen 23 mg/dL (7-17); Calcium 9.8 mg/dL (8.4-10.2); Carbon Dioxide 30 mmol/L (22-32); Chloride 93 mmol/L (98-107); Creatine Kinase 115 U/L (30-135); Estimated Glomerular Filt Rate 30 mL/min (>60); Glucose 129 mg/dL (70-99); HEMOLYSIS 38 (0-50); Lipase 256 U/L (23-300); Magnesium 1.9 mg/dL (1.6-2.3); Potassium 3.2 mmol/L (3.4-5.1); Sodium 134 mmol/L (137-145); Total Protein 7.8 g/dL (6.3-8.2)
[2024-06-27 16:21] LABS: NT-proBNP (BNP-Adult 18+) 93 pg/mL (<450); Troponin I < 0.012 ng/mL (0.01-0.034)
--- NOTE | 2024-06-27 17:45 | EKG_ITS ---
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
[2024-06-27 18:20] LABS: Troponin I < 0.012 ng/mL (0.01-0.034)
--- NOTE | 2024-06-27 23:17 | ED_ITS ---
HPI - Arrhythmia/Palpitations General Chief Complaint: Arrhythmia/Palpitations Stated Complaint: heart palpitations, dizziness, vomiting Time Seen by Provider: 06/27/24 23:13 Source: patient Mode of arrival: Wheelchair History of Present Illness HPI narrative: 79-year-old female with history of ongoing intermittent palpitations, wearing a ZIO patch that is due to be taken off and evaluated later this week, felt more palpitations symptoms earlier today. No associated shortness of breath or chest pain. No nausea or vomiting. No diaphoresis. No syncope or presyncope symptoms. No fevers or chills or recent cough symptoms. No diarrhea or loose stools. Related Data Home Medications Medication Instructions Recorded Confirmed metoprolol succinate 50 mg 50 mg PO DAILY 05/31/18 12/22/22 tablet,extended release 24 hr metronidazole 0.75 % lotion 1 applic topical BID 05/31/18 09/13/22 omeprazole 20 mg capsule,delayed 20 mg PO DAILY 05/31/18 12/22/22 release Vitamin D3 Complete See Rx Instructions .Route .COMPLEX 05/09/22 09/13/22 cyclobenzaprine 10 mg tablet See Rx Instructions .Route .COMPLEX 05/09/22 12/22/22 gabapentin 100 mg tablet 100 mg PO BEDTIME 05/09/22 12/22/22 melatonin 5 mg tablet 5 mg PO BEDTIME PRN Sleep 05/09/22 12/22/22 rosuvastatin 20 mg tablet 20 mg PO DAILY 05/09/22 12/22/22 semaglutide 1 mg/dose (4 mg/3 mL) 1 mg SUBCUT QWEEK 06/23/24 06/23/24 subcutaneous pen injector (Ozempic) Previous Rx's Medication Instructions Recorded aspirin 325 mg tablet 325 mg PO DAILY #30 tabs 06/03/18 Allergies Allergy/AdvReac Type Severity Reaction Status Date / Time No Known Drug Allergies Allergy Verified 06/23/24 13:36 Patient History Medical History (Updated 06/27/24 @ 23:17 by Geovany Wayne MD) Benign lipomatous neoplasm of other sites Spinal stenosis HLD (hyperlipidemia) Hypertension Dyslipidemia GERD (gastroesophageal reflux disease) Surgical History (Updated 12/17/22 @ 15:21 by Brenda Ross RN) Hx of colonoscopy (05/09/22) H/O: hysterectomy Social History (Updated 04/01/19 @ 19:41 by Josy Owusu DO) household members: spouse Smoking Status: Never smoker alcohol intake: current substance use type: does not use Smoking Status: Never smoker alcohol intake frequency: holidays/special occasions only Exam Narrative Exam Narrative: GENERAL: Well-developed patient, in mild distress. HEAD: Atraumatic. Normocephalic. EYES: Pupils equal round and reactive. Extraocular motions intact. No scleral icterus. No injection or drainage. ENT: Nose without bleeding, purulent drainage. Throat without erythema, tonsillar hypertrophy or exudate. Airway patent. NECK: Trachea midline. Non tender CARDIOVASCULAR: Regular rate and rhythm without murmurs, gallops, or rubs. Wearing ZIO patch like fire chief deputy left upper anterior chest. RESPIRATORY: Clear to auscultation. Breath sounds equal bilaterally. No wheezes, rales, or rhonchi. GASTROINTESTINAL: Abdomen soft, non-tender, nondistended. EXTREMITIES: No edema or joint tenderness. BACK: Nontender without deformity or crepitance. No flank tenderness. NEURO: AOx3. Motor functions grossly nonfocal SKIN: No rash or erythema of visible areas Initial Vital Signs Initial Vital Signs: Vital Signs Temperature 98.5 F 06/27/24 15:20 Pulse Rate 82 06/27/24 15:20 Respiratory Rate 18 06/27/24 15:20 Blood Pressure 119/71 06/27/24 15:20 Pulse Oximetry 97 06/27/24 15:20 Oxygen Delivery Method Room Air 06/27/24 15:20 Course Orders Ordered: Discontinued Medications Aspirin (Aspirin 81 Mg Chew Tab) 324 mg PO NOW ONE Stop: 06/27/24 15:31 Last Admin: 06/27/24 21:41 Dose: Not Given Documented By: JADEN Potassium Chloride (Potassium Chloride 20 Meq/15 Ml Udc) 40 meq PO NOW ONE Stop: 06/27/24 23:15 Last Admin: 06/27/24 23:28 Dose: 40 meq Documented By: SB Vital Signs Vital signs: Vital Signs - 8 hr 06/27/24 21:35 06/27/24 21:36 06/27/24 21:36 Pulse Rate 109 H 106 H Respiratory Rate Blood Pressure 153/93 H Pulse Oximetry 96 98 06/27/24 22:00 06/27/24 22:01 06/27/24 22:01 Pulse Rate 97 H 100 H Respiratory Rate 13 17 Blood Pressure 143/86 H Pulse Oximetry 99 99 06/27/24 22:30 06/27/24 22:31 06/27/24 22:31 Pulse Rate 91 H 96 H Respiratory Rate 19 23 Blood Pressure 150/72 H Pulse Oximetry 97 98 06/27/24 23:00 06/27/24 23:01 Pulse Rate 92 H 98 H Respiratory Rate 18 23 Blood Pressure Pulse Oximetry 95 98 MDM - Arrhythmia/Palpitations Lab Data Attestation: I reviewed the patient's lab results. Lab results narrative: White blood cell count 6300, hemoglobin 12.8, platelets adequate. Glucose 129. BUN 23 with creatinine 1.71. Potassium 3.2 decreased. Sodium 134 low. Liver functions normal, lipase normal. Troponin negative/unmeasurable x2 interval sets. 06/27/24 15:45 06/27/24 15:45 Labs: Lab Results 06/27/24 06/27/24 Range/Units 15:45 17:48 WBC 6.3 (4.5-11.0) X10^3/uL RBC 4.32 (4.0-5.2) X10^6/uL Hgb 12.8 (12.0-16.0) g/dL Hct 38.1 (36-46) % MCV 88.3 (80-100) fL MCH 29.6 (26-34) PG MCHC 33.6 (30-36) % RDW 14.9 H (11.6-14.8) % Plt Count 309 (150-400) X10^3/uL Neut % (Auto) 68.7 (50-75) % Lymph % (Auto) 18.4 L (25-40) % [place] % (Auto) 9.6 (3-14) % Eos % (Auto) 3.0 (2-4) % Baso % (Auto) 0.3 (0-2) % Neut # (Auto) 4300 (5808-0626) /uL Lymph # (Auto) 1200 (9529-1481) /uL [place] # (Auto) 600 (0-900) /uL Eos # (Auto) 200 (0-450) /uL Baso # (Auto) 0 (0-100) /uL PT 11.2 (9.4-12.5) SECONDS INR 1.0 (0.9-1.3) APTT 35 (25.1-36.5) SECONDS Sodium 134 L (137-145) mmol/L Potassium 3.2 L (3.4-5.1) mmol/L Chloride 93 L (98-107) mmol/L Carbon Dioxide 30 (22-32) mmol/L BUN 23 H (7-17) mg/dL Creatinine 1.71 H (0.52-1.04) mg/dL Estimated GFR 30 L (>60) mL/min BUN/Creatinine Ratio 13.5 (6-22) Glucose 129 H (70-99) mg/dL Calcium 9.8 (8.4-10.2) mg/dL Magnesium 1.9 (1.6-2.3) mg/dL Total Bilirubin 0.9 (0.2-1.3) mg/dL AST 35 (14-36) IU/L ALT 28 (<35) IU/L Alkaline Phosphatase 58 (38-126) U/L Total Creatine Kinase 115 (30-135) U/L Troponin I < 0.012 < 0.012 (0.01-0.034) ng/mL NT-Pro-B Natriuret Pep 93 (<450) pg/mL Total Protein 7.8 (6.3-8.2) g/dL Albumin 4.8 (3.5-5.0) g/dL Globulin 3.0 (1.7-4.1) g/dL Albumin/Globulin Ratio 1.6 (1.0-2.8) Lipase 256 (23-300) U/L Imaging Data Chest x-ray: Radiologist's Impresson: [address] [id number] XRay Report Signed Patient: Maggie Naranjo MR#: [id number] : 1945 Acct:[id number] Age/Sex: 79 / F Date of Service: 06/27/24 Loc: ED Accession Number: [id number] Procedure: XR chest 1V Ordering Provider: Shannon Nur D.O. PROCEDURE: XR CHEST 1V INDICATIONS: chest pain TECHNIQUE: One view of the chest was acquired. COMPARISON: [facility], CR, XR CHEST 1V, 06/23/2024, 13:45. [facility], CR, XR CHEST 1V, 05/31/2018, 14:12. FINDINGS: Surgical changes and devices: None. Lungs and pleura: Lungs are clear. No pleural effusions or pneumothorax. Mediastinum: Mediastinal contours appear normal. Heart size is normal. Bones and chest wall: No suspicious bony lesions. Overlying soft tissues appear unremarkable. IMPRESSION: No acute cardiopulmonary abnormality is seen. Approved by: Paresh Salinas M.D. on 06/27/2024 at 16:34 ECG Data Attestation: I personally reviewed and interpreted this ECG as follows: Interpretation: 1540, sinus tachycardia with rate of 101, no obvious ST segment elevation or depression changes. NM 152, QRS 88, QTC 440. 1749, normal sinus rhythm with rate of 97, no obvious ST segment elevation changes obvious. Some motion artifact baseline noted. No significant change from prior study. NM 162, QRS 86, QTC 441. MDM Narrative Medical decision making narrative: 79-year-old female currently wearing ZIO patch with intermittent palpitation symptoms seemed worse this morning, no syncope or presyncope, afebrile, sirs screen negative. Screening EKG unremarkable. Normal sinus rhythm on monitor. Normotensive. Screening labs sent from triage. EKG shows normal sinus rhythm without obvious ischemic changes, repeat study similar. Troponin x2 sets unmeasurable. Potassium level 3.2 low, oral potassium given. Chest x-ray unremarkable, see radiology report. No ectopy while in the emergency department. Encouraged to follow up for the results of here ZIO patch due to be turned in soon. Consider repeat potassium level check in followup as well. Discharged home with family. Return precautions discussed. Discharge Plan Departure Patient Disposition: Home Clinical Impression: Heart palpitations, Hypokalemia Activity Restrictions/Additional Instructions: Ongoing palpitations wearing ambulatory fire chief deputy patch, due to be evaluated soon. More palpitations this morning. No passing-out episodes. Unremarkable ED evaluation, no concerning heart rhythm problems while observed on monitor. Screening EKGs unremarkable. Serial blood tests not suggestive of heart attack at this time. Low serum potassium noted, oral potassium repletion given. Follow up with your regular provider later this week for turning in of your fire chief deputy, and follow up for results. For now continue taking your chronic medications as prescribed. Return earlier to this/nearest emergency department for any change worsening symptoms or any concerns prior. Prescriptions: No Action metoprolol succinate 50 mg tablet extended release 24 hr 50 mg PO DAILY Patient Comments: TK 1 T PO ONCE D FOR BLOOD PRESSURE CONTROL metronidazole 0.75 % lotion 1 applic topical BID omeprazole 20 mg capsule,delayed release(DR/EC) 20 mg PO DAILY aspirin 325 mg Tablet 325 mg PO DAILY Qty: 30 0RF rosuvastatin 20 mg Tablet 20 mg PO DAILY gabapentin 100 mg Tablet 100 mg PO BEDTIME melatonin 5 mg Tablet 5 mg PO BEDTIME PRN (Reason: Sleep) Vitamin D3 Complete See Rx Instructions .ROUTE .COMPLEX Rx Instructions: sleep cyclobenzaprine 10 mg tablet See Rx Instructions .ROUTE .COMPLEX Rx Instructions: muscle relax Ozempic 1 mg/dose (4 mg/3 mL) Pen Injector 1 mg SUBCUT QWEEK Referrals: Andrea Mackay MD [Primary Care Provider] - Stand Alone Forms: Patient Portal/API/Survey
[2024-06-27] MEDS: POTASSIUM CHLORIDE 20 MEQ/15 ML UDC 40 MEQ PO (23:28)
== END 2024-06-27 23:45 | disposition home or self-care (01) ==
PROVIDERS: Emergency Medicine; Student in an Organized Health Care Education/Training Program; Emergency Provider Emergency Medicine; PCP Family Medicine
DX: R00.2 Palpitations (principal); R07.9 Chest pain, unspecified; E87.6 Hypokalemia
CPT/HCPCS: 36415; 71045; 80053; 82550; 83690; 83735; 83880; 84484; 85025; 85610; 85730; 93005; 99284

== ENCOUNTER → 2024-11-24 12:27 | Outpatient (CLI) | payer MEDICARE, OTHER, SELFPAY ==
[2018-05-31 18:05] VITALS: BMI 25.4
--- NOTE | 2024-11-24 12:30 | DI.RAD.S_ITS ---
PROCEDURE: XR SHOULDER LT 3V INDICATIONS: ACUTE LT SHOULDER PAIN TECHNIQUE: 3 views of the shoulder were acquired. COMPARISON: None. FINDINGS: Mild degenerative changes of the left acromioclavicular and glenohumeral joints with joint space narrowing and osteophytes. Degenerative changes of the lower cervical, thoracic spine. No radiographic evidence fracture, dislocation, abnormal calcification or high attenuation foreign body. IMPRESSION: Mild degenerative changes. If symptoms persist or worsen, or there is high clinical suspicion of acute abnormality, CT or MRI could be performed. Dictated by: Ceasar Rasmussen M.D. on 11/25/2024 at 13:39 Approved by: Ceasar Rasmussen M.D. on 11/25/2024 at 13:42
== END ==
LOC: RAD 12:28
PROVIDERS: PCP Family Medicine; Referring Provider Family Medicine; Visit Provider Family Medicine
DX: M25.512 Pain in left shoulder (principal)
CPT/HCPCS: 73030